=== PATIENT | male | born 1965 | race African-American/Black ===

== ENCOUNTER 2017-01-26 19:19 | Inpatient (IN) ==
[2017-01-26] MEDS ORDERED: methylPREDNISolone SOD SUC 125 MG/2 ML VIAL IV STA (20:09)
[2017-01-26] MEDS ORDERED: cefTRIAXone 1,000 MG in SODIUM CHLORIDE 0.9% 100 ML IV STA (20:09)
[2017-01-26] MEDS ORDERED: ONDANSETRON 4 MG/2 ML VIAL IV STA (20:09)
[2017-01-26] MEDS ORDERED: FUROSEMIDE 100 MG/10 ML VIAL IV STA (20:09)
[2017-01-26] MEDS ORDERED: NITROGLYCERIN 2% OINT 1 INCH/GM PACK TOP STA (20:09)
[2017-01-26] MEDS ORDERED: ASPIRIN 325 MG TABLET PO STA (20:09)
[2017-01-26] MEDS ORDERED: MORPHINE 2 MG/1 ML SYRINGE IV STA (20:09)
[2017-01-26] MEDS ORDERED: ONDANSETRON 4 MG/2 ML VIAL ONE (20:23)
[2017-01-26] MEDS ORDERED: cefTRIAXone 1,000 MG VIAL ONE (20:23)
[2017-01-26] MEDS ORDERED: MORPHINE 2 MG/1 ML SYRINGE ONE (20:23)
[2017-01-26] MEDS ORDERED: NITROGLYCERIN 2% OINT 1 INCH/GM PACK TOP ONE (20:23)
[2017-01-26] MEDS ORDERED: FUROSEMIDE 40 MG/4 ML VIAL ONE (20:23)
[2017-01-26] MEDS ORDERED: ASPIRIN 325 MG TABLET ONE (20:23)
[2017-01-26] MEDS ORDERED: FUROSEMIDE 20 MG/2 ML VIAL ONE (20:23)
[2017-01-26] MEDS ORDERED: SODIUM CHLORIDE 0.9% 100 ML IV ONE (20:23)
[2017-01-26 20:24] LABS: Eosinophils # 0.1 10*3/uL (0.0-0.87); Eosinophils % 1.6 % (0.00-10.9); Hematocrit 41.4 VOL% (42.0-52.0); Hemoglobin 15.1 GM/DL (14.0-18.0); Immature Granulocytes % 0.3 %; Immature Granulocytes Absolute 0.01 #; Lymphocytes # 0.8 10*3/uL (1.4-4.0); Mean Corpuscular HGB Conc 36.5 GM/DL (32-36); Mean Corpuscular Hemoglobin 32 PG (27-34); Mean Corpuscular Volume 87.7 FL (87-102); Mean Platelet Volume 11.1 FL (9.6-12.0); Monocytes # 0.4 10*3/uL (0.11-0.8); Monocytes % 12.3 % (1.7-12.7); Neutrophils # 1.8 10*3/uL (1.4-7.4); Neutrophils % 58.8 % (38.7-73.9); Platelet Count 142 T/CUMM (130-400); Red Blood Count 4.72 MC/CUMM (3.8-5.5); Red Cell Distribution Width 13.6 % (9.3-17.3); White Blood Count 3.1 T/CUMM (4-12)
[2017-01-26] MEDS ORDERED: methylPREDNISolone SOD SUC 125 MG/2 ML VIAL ONE (20:24)
[2017-01-26] MEDS ORDERED: ALBUTEROL 2.5 MG/3 ML NEB RESP TX SCH (20:30)
--- NOTE | 2017-01-26 20:31 | Emergency Department Note ---
Mira Jones Rolonda, am scribing for, and in the presence of, Bassem Carlin MD 20:14. Tesfaye Jones Charles R, MD, personally performed the services described in this documentation, ascribed by Alvarado Meyers in my presence, and it is both accurate and complete . Arrival - Arrival Chief Complaint: Shortness of Breath Stated Complaint: high BP, SOB ED Nursing Triage Note: Pt to triage with c/o SOB, htn. Pt states he does have a hx of CHF and has been compliant with Lasix. Pt also states his mother was hospitalized recently. Pt states he does have a hx of anxiety and thats what it feels like. Pt also c/o nausea. Mode of Arrival: Ambulatory Limitations: No Limitations Source: Patient, Old Records Reviewed, RN Notes Reviewed Time Seen by Provider: 01/26/17 20:05 - History of Present Illness HPI Narrative: Pt is a 51 y/o male who presents to the ED for further evaluation of SOB with an onset of earlier today. Pt has a PMHx of CHF and HTN. Pt states that he takes Lasix and baby ASA has been compliant with his medication. He states that he has also been smoking. He denies CP. No other complaint/pain in ED. Onset (ago): hour(s) Consistency: constant Severity: moderate Severity scale (1-10): 4 Allergies/Adverse Reactions: Allergies Allergy/AdvReac Type Severity Reaction Status Date / Time No Known Allergies Allergy Unverified 01/26/17 19:32 Home Medications: Home Medications Medication Instructions Recorded Confirmed Type Unable To Obtain [Unable to Obtain] 01/26/17 01/26/17 History Review of System - Review of System 12 point system: reviewed and no additional remarkable complaints except as stated - Review of System Constitutional: Absent: chills Eyes: Absent: discharge Head/Ears/Nose/Throat: Absent: earache Respiratory: Present: respiratory distress (SOB). Absent: cough Cardiovascular: Absent: chest pain Gastrointestinal: Absent: abdominal pain Genitourinary male: Absent: dysuria Musculoskeletal: Absent: arm pain Skin: Absent: rash Neurological: Absent: headache Psychiatric: Absent: anxiety Endocrine: Absent: cold intolerance Hematological/Lymphatic: Absent: easy bleeding Allergic/Immunologic: Absent: facial swelling Medical,Surgical,& Family Hx - Medical History Cardio: History of: CHF, Hypertension Psychological: History of: Anxiety Disorders, Depression - Social History Smoking Status: Current every day smoker Frequency of Alcohol Use: Occasionally Type of Drug Use: None Exam Vital Signs: Vital Signs Temperature 99 F 01/26/17 19:25 Pulse Rate 88 01/26/17 21:20 Respiratory Rate 18 01/26/17 21:20 Blood Pressure 121/93 01/26/17 19:25 O2 Sat by Pulse Oximetry 100 01/26/17 21:20 - General General appearance: alert, in no apparent distress - Head Head exam: Present: atraumatic, normocephalic - Eye Eye exam: Present: PERRL, EOMI - ENT ENT exam: Present: mucous membranes moist. Absent: mucous membranes dry - Neck Neck exam: Present: full ROM. Absent: tenderness - Chest Chest inspection: Present: symmetric chest wall rise. Absent: tenderness - Respiratory Respiratory exam: Present: rales (at base), wheezes (at the top). Absent: normal lung sounds bilaterally - Cardiovascular Cardiovascular exam: Present: regular rate, normal rhythm, normal heart sounds. Absent: bradycardia - Abdominal Exam Abdominal exam: Present: soft, normal bowel sounds. Absent: tenderness - Extremities Exam Extremities exam: Present: full ROM, pedal edema (+1). Absent: tenderness - Back Exam Back exam: Present: full ROM. Absent: tenderness - Neurological Exam Neurological exam: Present: alert, oriented X3, CN II-XII intact - Psychiatric Psychiatric exam: Present: normal affect, normal mood - Skin Skin exam: Present: warm, dry, intact, normal color. Absent: rash Course - Reevaluation(s) Reevaluation #1: Patient still wheezing still short of breath but him in the hospital for inhalation therapy Time: 22:46 - Consultations Consultation #1: Hospitalist will admit patient Time: 22:44 Results - Labs CBC & BMP: 01/26/17 20:12 01/26/17 20:12 Lab Results: I have reviewed the patients labs Labs: Laboratory Tests 01/26/17 20:12 WBC 3.1 L RBC 4.72 Hgb 15.1 Hct 41.4 L MCHC 36.5 H Baso % (Auto) 1.0 H Lymph # (Auto) 0.8 L Laboratory Tests 01/26/17 20:12 INR 0.9 PT Patient/Control Mix 9.9 D-Dimer, Quantitative 0.8 Laboratory Tests 01/26/17 20:12 Sodium 129 L Potassium 4.4 Chloride 96 L Carbon Dioxide 20 L Anion Gap 17.4 H BUN 10 GFR Calculation 116 Glucose 76 Calculated Osmolality 255.9 L AST 133 H ALT 70 H Globulin 3.9 H Albumin/Globulin Ratio 0.9 L Laboratory Tests 01/26/17 20:12 B-Natriuretic Peptide 18 Laboratory Tests 01/26/17 20:12 Urine pH 5.0 Ur Specific [place] 1.004 Urine Protein 100 Urine Glucose (UA) Negative Urine Ketones Negative Urine Blood Small Urine Nitrate Negative Urine Bilirubin Negative Urine Urobilinogen < 2.0 H Urine Leukocytes Negative Ur Squamous Epith Cells Occasional Ur Culture Indicated? Not indicated - Diagnostic Findings Procedure: Chest x-ray: report reviewed by me (No acute pathology seen. Confluent shadows overlying the right base.) Disposition Clinical Impression: Acute exacerbation of chronic obstructive airways disease, Tobacco abuse, Bronchitis Case discussed with: patient, patient's family Disposition: Still a Patient Condition: Stable Time of Disposition: 22:44
[2017-01-26 20:33] LABS: INR 0.9; PT Patient Result 9.9 SECS
[2017-01-26 20:44] LABS: Albumin 3.6 G/DL (3.4-5.0); Bilirubin,Total 0.6 MG/DL (0.2-1.0); Calcium 8.7 MG/DL (8.5-10.1); Magnesium 1.9 MG/DL (1.8-2.4); Osmolality,Calculated 255.9 MOS/KG (273-304); Potassium 4.4 MMOL/L (3.5-5.1); Total Protein 7.5 G/DL (6.4-8.3)
--- NOTE | 2017-01-26 20:45 | XRay Report ---
History short of breath The heart is normal in size No acute infiltrates seen. Confluent shadows overlying the right base Impression: No acute pathology seen PROCEDURE INTERPRETED AT [facility] DEPARTMENT OF RADIOLOGY Final Report Signed by: Dr. Shala Mendoza
[2017-01-26 22:03] LABS: Apearance,Urine CLEAR (Clear); Bilirubin,Urine Negative (Negative); Blood, Urine Small mg/dL (Negative); Glucose,Urine (UA) Negative (Negative); Ketones,Urine Negative (Negative); Nitrite,Urine Negative (Negative); Protein,Urine 100 MG/DL; Squamous Epithelial Cell,Urine Occasional /HPF (0-10); Urine Color Yellow (Yellow); Urine Specific Gravity 1.004 (1.001-1.035); Urine Urobilinogen < 2.0 EU/DL (0.2-1.0)
[2017-01-26] MEDS ORDERED: LORazepam 2 MG/1 ML VIAL ONE (22:48)
[2017-01-26 22:52] LABS: CKMB % 0.6 %; Troponin I Only 0.03 NG/ML (0.00-0.045)
[2017-01-26] MEDS ORDERED: LORazepam 2 MG/1 ML VIAL IV STA (23:13)
--- NOTE | 2017-01-27 00:08 | Hospitalist History & Physical ---
Assessment and Plan - Time spent with patient Time spent with patient: Greater than 30 minutes Time spent discussing smoking cessation with patient: 3 to 10 minutes (1) Shortness of breath Status: Acute Assessment and plan: Patient has never been diagnosed with lung pathology Has smoked 5 cigarettes a day for 21 years Wheezing on the right lung hsu DuoNeb breathing treatments every 6 and as needed Solu-Medrol 40 mg every 12 Singulair daily IV fluid hydration Current Visit: Yes (2) Hypertension Status: Chronic Assessment and plan: Noncompliance Unsure of medication or when the last time he took his BP medicine Blood pressure and I was 156/101 Has a history of CHF Lipid panel pending We will start Norvasc and HCTZ daily Current Visit: Yes (3) Anxiety Status: Acute Assessment and plan: This possibly could have Emma his shortness of breath on Has a history of anxiety and depression Has been out of Xanax for 4-5 months We will start patient on Celexa Current Visit: Yes (4) Hyponatremia Status: Acute Assessment and plan: Patient smells of EtOH tonight but admits to drinking only 1 beer EtOH level pending Hyponatremia noted on labs We will start a multivitamin, folic acid, and thiamine daily Current Visit: Yes (5) Alcoholism Status: Chronic Current Visit: Yes (6) Smoking hx Status: Chronic Assessment and plan: Smokes approximately 5 cigarettes a day for 21 years Smoking cessation given for 7 minutes Nicotine patch ordered Current Visit: Yes History of Present Illness Chief complaint: shortness of breath History of present illness: Called to the ER for Mr. Mckay who is a 51 year old male that presents to the ER tonight complaining of shortness of breath that started 3 weeks ago but got worse today. Patient states that his mother is in the hospital and he was upset and became short of breath shortly after that. Associated symptoms include chest tightness, dry cough, and hot and cold spells. Patient denies chest pain, palpitations, dizziness, fatigue, nausea, vomiting, diarrhea, melena , or hematemesis. In the ER he received Rocephin 1 g IV, nitroglycerin topically, aspirin 325, Ativan 1 mg IV, morphine 4 mg IV, Lasix 60 mg IV, Zofran 4 mg IV, and Solu-Medrol 125 mg. Lab work revealed white blood cell count of 3, sodium of 129, chloride of 96, AST 133, ALT 70, CK of 1425. BNP was 18, troponin 0 0.030, and chest x-ray was negative. EKG showed sinus rhythm. Additional history includes anxiety, CHF, depression, hypertension, CABG, and right hand surgery. Patient states the only medication he takes is Xanax and he has been out of it for 4-5 months. His senior research consultant is Dr. Maradiaga in [place] but is unsure the last time he saw him. He has no PCP. Patient states he smokes 5 cigarettes a day for 21 years and drinks socially. However he has a strong smell of alcohol tonight. He will be admitted to the hospital medicine service, with scheduled and as needed breathing treatments and IV steroids. He will need to follow-up with a slurry tank tender on the outpatient basis. Home medications were not entered. Patient is a full code. Home Medications Medication Instructions Recorded Confirmed Type Unable To Obtain [Unable to Obtain] 01/26/17 01/26/17 History Allergies Allergy/AdvReac Type Severity Reaction Status Date / Time No Known Allergies Allergy Unverified 01/26/17 19:32 Medical,Surgical,& Family Hx - Medical History Cardio: History of: CHF, Hypertension No history of: CAD, [place] Psychological: History of: Anxiety Disorders, Depression Neurology: No history of: Neurological Problems HEENT: No history of: HEENT Problems Endocrine: No history of: Endocrine Problems Rheumatology: No history of;: Rheumatological Problems Respiratory: No history of: Respiratory Problems Renal: No history of: Renal Problems Genitourinary: No history of: Problems Gastrointestinal: No history of: Liver Problems, GI Problems Musculoskeletal: No history of: Musculoskeletal Problems Hematology: No history of: Blood Disorders Reproductive: No histroy: Reproductive Problems - Surgical History Cardiac Surgeries: Sugical HX of: Cardiac Surgery (3 stents) Orthopedic Surgeries: Surgical HX of;: Orthopedic Surgery (Right hand surgery) - Family History Family History: Reports;: Family Cancer (Momlung cancer; aunt and uncle and maternal grandmother colon cancer), Family Heart Disease (Father, paternal and maternal grandfatherMI) - Social History Smoking Status: Current every day smoker Have you smoked in the last 12 months: Yes (5 cigarettes a day) Time spent discussing smoking cessation with patient: 3 to 10 minutes (Socially) Frequency of Alcohol Use: Occasionally Type of Drug Use: None Marital Status: Single Lives With:: Parent Functional capacity: independent ambulation - Constitutional Constitutional: Present: chills, fever(s). Absent: excessive sweating, headache (s), weakness - EENT Eyes: Absent: blurry vision Ears: Absent: tinnitus Nose, mouth and throat: Absent: headache(s), hoarseness, sore throat - Cardiovascular Cardiovascular: Present: dyspnea, other (Chest tightness). Absent: chest pain at rest, chest pain with activity, edema, orthopnea - Respiratory Respiratory: Present: cough, dyspnea. Absent: dyspnea on exertion - Gastrointestinal Gastrointestinal: Absent: abdominal pain, change in bowel habits, diarrhea, nausea, vomiting - Genitourinary Genitourinary: Absent: difficulty urinating, dysuria - Musculoskeletal Musculoskeletal: Absent: back pain - Neurological Neurological: Absent: confusion, convulsions, dizziness - Psychiatric Psychiatric: Present: anxiety, depression, panic attacks. Absent: auditory hallucinations, confusion, homicidal ideation, suicidal ideation, visual hallucinations - Endocrine Endocrine: Absent: cold intolerance, heat intolerance - Hematologic/Lymphatic Hematologic/Lymphatic: Absent: easy bleeding, easy bruising Exam - Constitutional Vitals: Period Temp Pulse Resp BP Sys/Sousa Pulse Ox Last 24 Hr 99 F-99 F 86-103 18-21 121-121/93-93 98-100 General appearance: no acute distress, over weight - Head Head exam: Present: normal inspection, normocephalic - Eye Eye exam: Present: EOMI Pupils: Present: HERIBERTO, normal accommodation - ENT ENT exam: Present: normal exam - Neck Neck exam: Present: normal inspection - Respiratory Respiratory exam: Present: wheezes (Right lobes). Absent: accessory muscle use (Respirations even and unlabored. Symmetrical rise and fall of chest noted.) - Cardiovascular Cardiovascular exam: Present: regular rate and rhythm. Absent: diastolic murmur , systolic murmur - GI/Abdominal GI/Abdominal exam: Present: normal bowel sounds, soft. Absent: distended, firm , tenderness - Extremities Exam Extremities exam: Present: normal inspection, normal capillary refill, full ROM. Absent: edema - Back Exam Back exam: Present: normal inspection - Neurological Exam Neurological exam: Present: alert, oriented X3 (Answers questions appropriately. Makes good eye contact.) - Psychiatric Psychiatric exam: Present: normal affect, normal mood - Skin Skin exam: Present: normal color, warm, dry, intact Results - Labs CBC & BMP: 01/26/17 20:12 01/26/17 20:12 Lab Results: I have reviewed the past 24 hour labs - EKG EKG results: interpreted by MARYJANE - Diagnostic Findings Procedure: Chest x-ray: report reviewed by me (No acute pathology seen)
[2017-01-27] MEDS ORDERED: NICOTINE 21 MG/24 HR PATCH TRANSDERM PRN (00:36)
[2017-01-27] MEDS ORDERED: ACETAMINOPHEN 325 MG TABLET PO PRN (00:36)
[2017-01-27] MEDS ORDERED: SODIUM CHLORIDE 0.9% 1,000 ML IV SCH (00:36)
[2017-01-27] MEDS ORDERED: ALBUTEROL/IPRATROPIUM 3 ML NEB RESP TX PRN (00:36)
[2017-01-27] MEDS ORDERED: ONDANSETRON 4 MG/2 ML VIAL IV PRN (00:36)
[2017-01-27] MEDS: ALBUTEROL/IPRATROPIUM 3 ML NEB RESP TX SCH ×4 (01:12→20:14)
[2017-01-27] MEDS: MONTELUKAST 10 MG TABLET PO SCH ×2 (01:59→20:35)
[2017-01-27] MEDS: methylPREDNISolone SOD SUC 40 MG/1 ML VIAL IV SCH ×2 (01:59→13:42)
[2017-01-27 03:16] LABS: Risk Ratio 1.61
[2017-01-27 08:06] LABS: Hematocrit 40.4 VOL% (42.0-52.0); Hemoglobin 14.6 GM/DL (14.0-18.0); Lymphocytes # 0.2 10*3/uL (1.4-4.0); Lymphocytes % 8.1 % (21.2-54.2); Mean Corpuscular HGB Conc 36.1 GM/DL (32-36); Mean Corpuscular Hemoglobin 32 PG (27-34); Mean Corpuscular Volume 88.8 FL (87-102); Mean Platelet Volume 11.5 FL (9.6-12.0); Monocytes % 1.3 % (1.7-12.7); Neutrophils # 2.1 10*3/uL (1.4-7.4); Neutrophils % 90.6 % (38.7-73.9); Platelet Count 125 T/CUMM (130-400); Red Blood Count 4.55 MC/CUMM (3.8-5.5); White Blood Count 2.4 T/CUMM (4-12)
[2017-01-27 08:34] LABS: Albumin 3.2 G/DL (3.4-5.0); Bilirubin,Total 0.4 MG/DL (0.2-1.0); Calcium 8.4 MG/DL (8.5-10.1); Magnesium 1.6 MG/DL (1.8-2.4); Osmolality,Calculated 261.7 MOS/KG (273-304); Potassium 4.7 MMOL/L (3.5-5.1); Total Protein 7.2 G/DL (6.4-8.3)
[2017-01-27 08:41] LABS: Band Neutrophils 4 % (0-10); Lymphocytes 5 % (20-55); Segmented Neutrophils 91 % (50-85); Total Cells Counted 100
[2017-01-27 08:46] LABS: CKMB % 0.6 %
[2017-01-27] MEDS: PANTOPRAZOLE 40 MG TABLET PO SCH (08:58)
[2017-01-27] MEDS: hydroCHLOROthiazide 12.5 MG CAPSULE PO SCH (08:58)
[2017-01-27] MEDS: amLODIPine 10 MG TABLET PO SCH (08:58)
[2017-01-27] MEDS: DOCUSATE SODIUM 100 MG CAPSULE PO SCH ×2 (08:58→20:35)
[2017-01-27] MEDS: ENOXAPARIN 40 MG/0.4 ML SYRINGE SUBCUT SCH (08:59)
[2017-01-27] MEDS ORDERED: THIAMINE INJ 100 MG, FOLIC ACID INJ 1 MG, MULTIVITAMIN INJ 10 ML in SODIUM CHLORIDE 0.9... IV SCH (09:00)
[2017-01-27] MEDS ORDERED: THIAMINE 100 MG TABLET PO SCH (09:00)
[2017-01-27] MEDS ORDERED: MULTIVITAMIN (CENTRUM) TABLET PO SCH (09:00)
[2017-01-27] MEDS ORDERED: FOLIC ACID 1 MG TABLET PO SCH (09:00)
[2017-01-27] MEDS: LORazepam 2 MG/1 ML VIAL IV PRN ×3 (10:35→20:37)
--- NOTE | 2017-01-27 13:15 | Hospitalist Progress Note ---
Assessment and Plan (1) Shortness of breath Status: Acute Assessment and plan: patient looked anxious, mild hypoxic with elevated D-dimer Plan CT with PTE protocol Continue with nebs treatment, steroids, oxygen Complete cardiac enzymes Current Visit: Yes (2) Hypertension Status: Chronic Assessment and plan: stable Current Visit: Yes (3) Alcoholism Status: Chronic Assessment and plan: with Impending DTs Plan IVF, banana bag, Ativan prn add Librium Current Visit: Yes (4) Hyponatremia Status: Acute Assessment and plan: mild-most likely due Alcoholism. Improving Plan continue current care Current Visit: Yes (5) Acute exacerbation of chronic obstructive airways disease Status: Acute Assessment and plan: continue with Steroids, nebs treatment and oxygen. CXR-no acute changes Current Visit: Yes (6) Tobacco abuse Status: Acute Assessment and plan: Counseled to quit, continue on Nicotine patch Current Visit: Yes (7) Elevated liver enzymes Status: Acute Assessment and plan: will get hepatitis panel, Liver uss, ammonia level Current Visit: Yes (8) Anxiety Status: Acute Assessment and plan: continue celexa and ativan prn Current Visit: Yes Hospitalist: Subjective Interval history: Patient was anxious and shaky. Exam - Constitutional Vitals: Period Temp Pulse Resp BP Sys/Sousa Pulse Ox Last 24 Hr 98.3 F-99 F 86-112 16-21 121-151/92-96 95-700 General appearance: no acute distress - Head Head exam: Present: normal inspection - Respiratory Respiratory exam: Present: clear to auscultation bilaterally - Cardiovascular Cardiovascular exam: Present: regular rate and rhythm - GI/Abdominal GI/Abdominal exam: Present: normal bowel sounds - Extremities Exam Extremities exam: Present: normal inspection Results - Labs CBC & BMP: 01/27/17 07:33 01/27/17 07:33 Lab Results: I have reviewed the past 24 hour labs Specialty Discharge - Follow Up or Referrals Follow up with: Graeme Anne MD [Physician] -
[2017-01-27] MEDS ORDERED: MAGNESIUM SULF RIDER 2 GM in PREMIX 1 EACH IV ONE (13:17)
[2017-01-27] MEDS: chlordiazePOXIDE 10 MG CAPSULE PO PRN ×2 (13:41→20:35)
[2017-01-27 13:56] LABS: PT Patient Result 10.3 SECS
[2017-01-27 14:15] LABS: CKMB % 0.6 %; Troponin I Only 0.037 NG/ML (0.00-0.045)
--- NOTE | 2017-01-27 14:33 | CT Report ---
Exam: CT chest with contrast, PE study Date: 01/27/2017 Comparison: Chest x-ray 01/26/2017 Reason: Shortness of breath, elevated d-dimer Technique: Axial images of the chest were obtained after administration of 160 cc of IV Omnipaque 350 intravenous contrast. Initial scans were limited and additional scans were obtained following the injection of additional contrast. Coronal reformatted images were also acquired. The study was performed per pulmonary embolism protocol. Total DLP: 1407.90 Findings: The heart is normal in size with cardiac fat pads and coronary artery calcifications. No evidence of aortic dissection or pulmonary emboli. Calcified granulomata/nodes. Minimal atelectasis. 39 mm hiatal hernia with air-fluid level in the esophagus. Prominent fatty infiltration of the liver which has a somewhat lobulated contour. Calcified granuloma in the nonenlarged spleen. Degenerative changes are noted. Impression: No evidence of pulmonary embolism. Coronary artery calcifications are noted with cardiac fat pads. Fatty infiltration of the liver. 39 mm hiatal hernia with nonspecific air-fluid level in the esophagus. Evidence of old healed granulomatous disease with minimal atelectasis. This CT exam was performed using one or more the following dose reduction techniques: Automated exposure control, adjustment of the MA and/or KV according to patient size, or use of iterative reconstruction technique. PROCEDURE INTERPRETED AT [facility] DEPARTMENT OF RADIOLOGY Final Report Signed by: Dr. Iris Carter
--- NOTE | 2017-01-27 15:10 | Ultrasound Report ---
Liver ultrasound. Indication: Abnormal liver enzymes. History of alcohol abuse. The length of the liver is normal. It measures 18.2 cm in length. There is severe fatty infiltration of the liver. No focal liver masses are identified. There is no intrahepatic biliary ductal dilatation. No nodularity of the contour is seen. There are multiple gallstones present. There is no gallbladder wall thickening or fluid around the gallbladder. The common duct measures 4 mm. The tail of the pancreas is obscured by bowel gas. Visualized portions of the pancreas appear normal. The right kidney presents a normal appearance. There is no ascites noted. Impression: Severe fatty liver. Cholelithiasis. The Ultrasound images were captured and stored. PROCEDURE INTERPRETED AT [facility] DEPARTMENT OF RADIOLOGY Final Report Signed by: Dr. Emperatriz Mendoza
--- NOTE | 2017-01-27 15:44 | Order Completion Report ---
See report scanned to EMR
[2017-01-27] MEDS: CITALOPRAM 20 MG TABLET PO SCH (20:35)
[2017-01-28] MEDS: methylPREDNISolone SOD SUC 40 MG/1 ML VIAL IV SCH ×2 (01:00→13:00)
[2017-01-28] MEDS: ALBUTEROL/IPRATROPIUM 3 ML NEB RESP TX SCH ×4 (01:16→19:44)
[2017-01-28 05:31] LABS: Hematocrit 37.8 VOL% (42.0-52.0); Hemoglobin 13.5 GM/DL (14.0-18.0); Immature Granulocytes % 0.3 %; Immature Granulocytes Absolute 0.01 #; Lymphocytes # 0.2 10*3/uL (1.4-4.0); Lymphocytes % 4.8 % (21.2-54.2); Mean Corpuscular HGB Conc 35.7 GM/DL (32-36); Mean Corpuscular Hemoglobin 32 PG (27-34); Mean Platelet Volume 11.7 FL (9.6-12.0); Monocytes # 0.4 10*3/uL (0.11-0.8); Monocytes % 9.9 % (1.7-12.7); Neutrophils # 3.3 10*3/uL (1.4-7.4); Platelet Count 137 T/CUMM (130-400); Red Cell Distribution Width 14.2 % (9.3-17.3); White Blood Count 3.9 T/CUMM (4-12)
[2017-01-28 05:53] LABS: Hepatitis B Core IgM Quant 0.26 Index; Hepatitis B Core IgM Result Negative (Negative)
[2017-01-28 05:56] LABS: Hepatitis C Virus Ab Quant 0.14 Index; Hepatitis C Virus Ab Result Negative (Negative)
[2017-01-28 06:00] LABS: Troponin I Only 0.032 NG/ML (0.00-0.045)
[2017-01-28 06:13] LABS: Hepatitis A Ab IgM Quant 3.75 Index; Hepatitis A Ab IgM Result Positive (Negative)
[2017-01-28 06:17] LABS: Hepatitis B Surface Ag Quant 0.22 Index; Hepatitis B Surface Ag Result Negative (Negative)
[2017-01-28] MEDS: LORazepam 2 MG/1 ML VIAL IV PRN ×3 (06:29→18:25)
[2017-01-28 06:44] LABS: Band Neutrophils 2 % (0-10); Lymphocytes 7 % (20-55); Nucleated Red Blood Cells 1 (0-5); Platelet Estimate Normal; Segmented Neutrophils 88 % (50-85); Total Cells Counted 100
[2017-01-28 06:56] LABS: Calcium 8.6 MG/DL (8.5-10.1); Magnesium 2.3 MG/DL (1.8-2.4); Osmolality,Calculated 269.2 MOS/KG (273-304); Potassium 4.5 MMOL/L (3.5-5.1)
[2017-01-28] MEDS: ENOXAPARIN 40 MG/0.4 ML SYRINGE SUBCUT SCH (09:00)
[2017-01-28] MEDS: hydroCHLOROthiazide 12.5 MG CAPSULE PO SCH (09:01)
[2017-01-28] MEDS: amLODIPine 10 MG TABLET PO SCH (09:01)
[2017-01-28] MEDS: PANTOPRAZOLE 40 MG TABLET PO SCH (09:01)
[2017-01-28] MEDS: DOCUSATE SODIUM 100 MG CAPSULE PO SCH ×2 (09:01→21:24)
[2017-01-28] MEDS: chlordiazePOXIDE 10 MG CAPSULE PO PRN ×2 (09:01→21:23)
[2017-01-28] MEDS: ISOSORBIDE MONONITRATE 60 MG TABLET PO SCH ×2 (13:58→21:23)
[2017-01-28] MEDS: LABETALOL 200 MG TABLET PO SCH ×2 (13:59→21:22)
--- NOTE | 2017-01-28 17:36 | Hospitalist Progress Note ---
Assessment and Plan (1) Shortness of breath Status: Acute Assessment and plan: CT showed no evidence of PE. Troponin was okay. He breathes better. Plan Continue with nebs treatment, steroids, oxygen Current Visit: Yes (2) Hypertension Status: Chronic Assessment and plan: We have resumed some of the home blood pressure meds, follow response. Current Visit: Yes (3) Alcoholism Status: Chronic Assessment and plan: with Impending DTs. Patient appears to look better today Plan Continue IVF, banana bag, Ativan prn, Librium Current Visit: Yes (4) Hyponatremia Status: Acute Assessment and plan: mild-most likely due Alcoholism. Improving Plan continue current care Current Visit: Yes (5) Acute exacerbation of chronic obstructive airways disease Status: Acute Assessment and plan: continue with Steroids, nebs treatment and oxygen. CXR-no acute changes Current Visit: Yes (6) Tobacco abuse Status: Acute Assessment and plan: Counseled to quit, continue on Nicotine patch Current Visit: Yes (7) Elevated liver enzymes Status: Acute Assessment and plan: Liver US- Severe fatty liver. Cholelithiasis. Hepatitis panel- Hepatitis A positive ammonia level- normal Plan Continue to monitor Current Visit: Yes (8) Anxiety Status: Acute Assessment and plan: continue celexa and ativan prn Current Visit: Yes Hospitalist: Subjective Interval history: Patient's blood pressure was high so we resumed some of his home blood pressure meds.He looks better today Exam - Constitutional Vitals: Period Temp Pulse Resp BP Sys/Sousa Pulse Ox Last 24 Hr 97.9 F-98.7 F 90-122 17-20 129-152/85-109 95-100 General appearance: no acute distress - Head Head exam: Present: normal inspection - Respiratory Respiratory exam: Present: clear to auscultation bilaterally - Cardiovascular Cardiovascular exam: Present: regular rate and rhythm - GI/Abdominal GI/Abdominal exam: Present: normal bowel sounds - Extremities Exam Extremities exam: Present: normal inspection - Neurological Exam Neurological exam: Present: alert, oriented X3 Results - Labs CBC & BMP: 01/28/17 04:44 01/28/17 04:44 Lab Results: I have reviewed the past 24 hour labs Specialty Discharge - Follow Up or Referrals Follow up with: Graeme Anne MD [Physician] -
[2017-01-28] MEDS: CITALOPRAM 20 MG TABLET PO SCH (21:22)
[2017-01-28] MEDS: MONTELUKAST 10 MG TABLET PO SCH (21:23)
[2017-01-29] MEDS: ALBUTEROL/IPRATROPIUM 3 ML NEB RESP TX SCH ×4 (00:08→19:29)
[2017-01-29] MEDS: methylPREDNISolone SOD SUC 40 MG/1 ML VIAL IV SCH ×2 (00:24→13:56)
[2017-01-29 06:15] LABS: Hematocrit 36.7 VOL% (42.0-52.0); Immature Granulocytes % 0.3 %; Immature Granulocytes Absolute 0.01 #; Lymphocytes # 0.2 10*3/uL (1.4-4.0); Lymphocytes % 5.6 % (21.2-54.2); Mean Corpuscular HGB Conc 35.4 GM/DL (32-36); Mean Corpuscular Hemoglobin 32 PG (27-34); Mean Corpuscular Volume 90.8 FL (87-102); Mean Platelet Volume 11.6 FL (9.6-12.0); Monocytes # 0.3 10*3/uL (0.11-0.8); Monocytes % 8.4 % (1.7-12.7); Neutrophils # 3.4 10*3/uL (1.4-7.4); Neutrophils % 85.7 % (38.7-73.9); Platelet Count 111 T/CUMM (130-400); Red Blood Count 4.04 MC/CUMM (3.8-5.5); Red Cell Distribution Width 14.2 % (9.3-17.3); White Blood Count 3.9 T/CUMM (4-12)
[2017-01-29 06:48] LABS: Bilirubin,Total 1.1 MG/DL (0.2-1.0); Osmolality,Calculated 277.1 MOS/KG (273-304); Potassium 4.5 MMOL/L (3.5-5.1); Total Protein 6.3 G/DL (6.4-8.3)
[2017-01-29] MEDS: hydroCHLOROthiazide 12.5 MG CAPSULE PO SCH (09:09)
[2017-01-29] MEDS: DOCUSATE SODIUM 100 MG CAPSULE PO SCH ×2 (09:09→21:27)
[2017-01-29] MEDS: LOSARTAN 50 MG TABLET PO SCH (09:09)
[2017-01-29] MEDS: chlordiazePOXIDE 10 MG CAPSULE PO PRN ×3 (09:09→21:31)
[2017-01-29] MEDS: ISOSORBIDE MONONITRATE 60 MG TABLET PO SCH ×2 (09:09→21:26)
[2017-01-29] MEDS: LABETALOL 200 MG TABLET PO SCH ×2 (09:09→21:27)
[2017-01-29] MEDS: amLODIPine 10 MG TABLET PO SCH (09:09)
[2017-01-29] MEDS: ASPIRIN 325 MG TABLET PO SCH (09:09)
[2017-01-29] MEDS: PANTOPRAZOLE 40 MG TABLET PO SCH (09:09)
[2017-01-29] MEDS: ENOXAPARIN 40 MG/0.4 ML SYRINGE SUBCUT SCH (09:10)
[2017-01-29] MEDS: LORazepam 2 MG/1 ML VIAL IV PRN ×2 (11:12→21:31)
--- NOTE | 2017-01-29 13:51 | Hospitalist Progress Note ---
Assessment and Plan (1) Shortness of breath Status: Acute Assessment and plan: CT showed no evidence of PE. Troponin was okay. He breathes better. Plan Continue with nebs treatment, decrease steroids, oxygen Current Visit: Yes (2) Hypertension Status: Chronic Assessment and plan: stable on his home meds. Current Visit: Yes (3) Alcoholism Status: Chronic Assessment and plan: with Impending DTs. Patient appears to be improving although with ocassional anxiety attacks which may be related to sick mom. Plan Continue IVF, banana bag, Ativan prn, Librium Current Visit: Yes (4) Hyponatremia Status: Acute Assessment and plan: mild-most likely due Alcoholism. Improving Plan continue current care Current Visit: Yes (5) Acute exacerbation of chronic obstructive airways disease Status: Acute Assessment and plan: continue with Steroids, nebs treatment and oxygen. CXR-no acute changes Current Visit: Yes (6) Tobacco abuse Status: Acute Assessment and plan: Counseled to quit, continue on Nicotine patch Current Visit: Yes (7) Elevated liver enzymes Status: Acute Assessment and plan: Liver US- Severe fatty liver. Cholelithiasis.Improving Hepatitis panel- Hepatitis A positive ammonia level- normal Plan Continue to monitor Current Visit: Yes (8) Anxiety Status: Acute Assessment and plan: continue celexa and ativan prn Current Visit: Yes (9) Dyslipidemia Status: Acute Assessment and plan: start statins, monitor LFTs Current Visit: Yes Hospitalist: Subjective Interval history: Patient seen. his mom is on admission on the 4th floor and she is not doing well. He states he has been having his anxiety attacks. Exam - Constitutional Vitals: Period Temp Pulse Resp BP Sys/Sousa Pulse Ox Last 24 Hr 97.9 F-99.7 F 62-122 16-19 115-156/71-97 95-100 General appearance: no acute distress - Head Head exam: Present: normal inspection - Respiratory Respiratory exam: Present: clear to auscultation bilaterally - Cardiovascular Cardiovascular exam: Present: regular rate and rhythm - GI/Abdominal GI/Abdominal exam: Present: normal bowel sounds - Extremities Exam Extremities exam: Present: normal inspection - Neurological Exam Neurological exam: Present: alert Results - Labs CBC & BMP: 01/29/17 05:39 01/29/17 05:39 Lab Results: I have reviewed the past 24 hour labs Specialty Discharge - Follow Up or Referrals Follow up with: Graeme Anne MD [Physician] -
[2017-01-29] MEDS: SPIRONOLACTONE 25 MG TABLET PO SCH (15:14)
[2017-01-29] MEDS ORDERED: LOVASTATIN 20 MG TABLET PO SCH (17:00)
[2017-01-29] MEDS ORDERED: SIMVASTATIN 20 MG TABLET PO SCH (21:00)
[2017-01-29] MEDS: CITALOPRAM 20 MG TABLET PO SCH (21:26)
[2017-01-29] MEDS: MONTELUKAST 10 MG TABLET PO SCH (21:26)
[2017-01-30] MEDS: ALBUTEROL/IPRATROPIUM 3 ML NEB RESP TX SCH ×2 (00:13→07:50)
[2017-01-30 04:26] VITALS: BP 127/93
[2017-01-30 07:08] LABS: Hemoglobin 12.7 GM/DL (14.0-18.0); Immature Granulocytes % 0.5 %; Immature Granulocytes Absolute 0.02 #; Lymphocytes # 0.8 10*3/uL (1.4-4.0); Lymphocytes % 18.1 % (21.2-54.2); Mean Corpuscular HGB Conc 35.3 GM/DL (32-36); Mean Corpuscular Hemoglobin 32 PG (27-34); Mean Corpuscular Volume 91.8 FL (87-102); Mean Platelet Volume 12.5 FL (9.6-12.0); Monocytes # 0.6 10*3/uL (0.11-0.8); Monocytes % 12.9 % (1.7-12.7); Neutrophils % 68.5 % (38.7-73.9); Platelet Count 112 T/CUMM (130-400); Red Blood Count 3.92 MC/CUMM (3.8-5.5); Red Cell Distribution Width 14.1 % (9.3-17.3); White Blood Count 4.4 T/CUMM (4-12)
[2017-01-30 07:41] LABS: Albumin 3.2 G/DL (3.4-5.0); Bilirubin,Total 0.9 MG/DL (0.2-1.0); Potassium 4.3 MMOL/L (3.5-5.1); Total Protein 6.4 G/DL (6.4-8.3)
[2017-01-30] MEDS: ISOSORBIDE MONONITRATE 60 MG TABLET PO SCH (08:39)
[2017-01-30] MEDS: SPIRONOLACTONE 25 MG TABLET PO SCH (08:39)
[2017-01-30] MEDS: LABETALOL 200 MG TABLET PO SCH (08:39)
[2017-01-30] MEDS: amLODIPine 10 MG TABLET PO SCH (08:39)
[2017-01-30] MEDS: PANTOPRAZOLE 40 MG TABLET PO SCH (08:40)
[2017-01-30] MEDS: hydroCHLOROthiazide 12.5 MG CAPSULE PO SCH (08:40)
[2017-01-30] MEDS: ENOXAPARIN 40 MG/0.4 ML SYRINGE SUBCUT SCH (08:40)
[2017-01-30] MEDS: DOCUSATE SODIUM 100 MG CAPSULE PO SCH (08:40)
[2017-01-30] MEDS: ASPIRIN 325 MG TABLET PO SCH (08:40)
[2017-01-30] MEDS: LOSARTAN 50 MG TABLET PO SCH (08:40)
--- NOTE | 2017-01-30 08:44 | Discharge Summary ---
<Jules Perales - Last Filed: 01/30/17 08:47> Hospital Course - Hospital Course Hospital Course: Mr. Mckay is a 51 year of male who presented to the [facility] ED on 01/26/17 with complaints of progressively worsening shortness of breath. On admission, it was found that the patient's mother was also admitted to the hospital. He was admitted to the hospital medicine service with acute exacerbation of COPD, SOB, HTN, hyponatremia, alcoholism, anxiety and elevated liver enzymes. He was treated with duonebs, O2 and steroids. CXR showed no acute changes. His hyponatremia was likely due to excessive alcohol intake. This improved with IV fluids and ETOH abstinence. Impending DTs became evident, and the patient was continued on IV fluids with a banana bag, Librium and Ativan PRN. A hepatitis panel revealed a positive Hep A IgM Ab. Liver US revealed a severe fatty liver and cholelithiasis. Chest CT showed no evidence of PE. Celexa and Ativan PRN were continued for the patient's anxienty. At this time, the patient has reached maximum benefit from hospitalization and is stable for discharge home. Unfortunately, he lost his mom last night but he is stable enough to go home.We will send him home on Zetia for his dyslipidemia instead of the statins, his PCP will need to follow up with him. He should follow up with his PCP in 1-2 weeks and later with a GI specialist. - Time spent with patient Time with patient DS: Greater than 30 minutes Time spent discussing smoking cessation with patient: more than 10 minutes Specialty Discharge - Follow Up or Referrals Follow up with: Graeme Anne MD [Physician] - Discharge Plan - Discharge Data Disposition: Disch To Home/Self Care - Discharge Medications New chlordiazePOXIDE [Librium] 10 mg PO TID PRN #20 capsule PRN Reason: Agitation Citalopram [CeleXA] 10 mg PO BEDTIME #20 tablet Ezetimibe [Zetia] 10 mg PO BEDTIME #30 tablet Ipratropium/Albuterol Inhaler [Combivent Respimat Inhaler] 1 puff INH QID #1 inhaler Montelukast Tab [Singulair Tab] 10 mg PO BEDTIME #30 tablet Nicotine 21 mg/24 Hr Patch [Nicoderm CQ 21 mg/24 hr Patch] 1 patch TRANSDERM DAILY PRN #7 patch PRN Reason: Nicotine Cravings Pantoprazole Tab [Protonix Tab] 40 mg PO DAILY #30 tablet HYDROcodone/ACETAMIN 5-325 [Ramey 5-325] 1 tablet PO Q4H PRN #20 tablet PRN Reason: Pain Mild (1-3) predniSONE TAB [PredniSONE] See Taper PO DAILY #30 tablet Continue NIFEdipine [Nifedipine ER] 90 mg PO DAILY Labetalol HCl 200 mg PO BID Isosorbide Mononitrate [Isosorbide Mononitrate ER] 60 mg PO BID Hydralazine HCl 100 mg PO TID Spironolactone 25 mg PO DAILY Losartan Potassium 100 mg PO DAILY Aspirin 325 mg PO DAILY - Follow Up or Referral Follow Up: Graeme Anne MD [Physician] - - Forms/Instructions Exam - Constitutional Vitals: Period Temp Pulse Resp BP Sys/Sousa Pulse Ox Last 24 Hr 97.7 F-98.5 F 68-103 16-20 101-141/71-93 92-100 Discharge Results Procedures and tests throughout hospitalization: Pending Orders 01/26/17 20:12 Blood Culture Stat Labs on day of discharge: Labs from last 24 hours 01/30/17 01/30/17 05:39 05:39 WBC 4.4 RBC 3.92 Hgb 12.7 L Hct 36.0 L MCV 91.8 MCH 32 MCHC 35.3 RDW 14.1 Plt Count 112 L MPV 12.5 H Neut % (Auto) 68.5 Lymph % (Auto) 18.1 L Wagoner % (Auto) 12.9 H Eos % (Auto) 0.0 Baso % (Auto) 0.0 Neut # (Auto) 3.0 Lymph # (Auto) 0.8 L Wagoner # (Auto) 0.6 Eos # (Auto) 0.0 Baso # (Auto) 0.0 Immature Gran % 0.5 Nucleated RBC % 0.0 Immature Gran # 0.02 Nucleated RBCs # 0.00 Immature Plt Fraction 0.0 Sodium 136 Potassium 4.3 Chloride 100 Carbon Dioxide 25 Anion Gap 15.3 H BUN 42 H Creatinine 1.40 H GFR Calculation 87 BUN/Creatinine Ratio 30.00 H Glucose 77 Calculated Osmolality 281.0 Calcium 9.0 Total Bilirubin 0.90 AST 54 H ALT 51 Alkaline Phosphatase 49 Total Protein 6.4 Albumin 3.2 L Globulin 3.2 Albumin/Globulin Ratio 1.0 L Preliminary micro results at discharge 01/26/17 20:12 Blood Culture - Preliminary Blood No growth at 3 days 01/26/17 20:12 Blood Culture - Preliminary Blood No growth at 3 days DS: Provider Date of admission: 01/26/17 23:44 Primary care physician: . No PCP Attending physician on admission: Cris Samaniego MD Consults: 01/27/17 00:36 Consult to Case Mgmt/Social Srvs [CONS] Routine Reason for Case Mgmt/Social Srvs: Discharge Planning Consult Comment: will need appointment for follow up with PCP/Pulmonology Discharging clinician: Jules STERN Expected date of discharge: 01/30/17 <Cris Samaniego - Last Filed: 01/30/17 09:25> Hospital Course - Time spent with patient Time with patient DS: Greater than 30 minutes (Time spent greater than 35mins) Diagnosis - Discharge Diagnosis (1) Shortness of breath Status: Acute (2) Hypertension Status: Chronic (3) Alcoholism Status: Chronic (4) Hyponatremia Status: Acute (5) Acute exacerbation of chronic obstructive airways disease Status: Acute (6) Tobacco abuse Status: Acute (7) Elevated liver enzymes Status: Acute (8) Anxiety Status: Acute (9) Dyslipidemia Status: Acute Discharge Plan - Discharge Data Condition at Discharge: Stable Discharge Diet: advance to your usual diet, low fat, low cholesterol Activity: resume usual activities as tolerated - Forms/Instructions Additional Discharge Instructions: Follow with PCP in 1week Exam - Constitutional General appearance: no acute distress - Head Head exam: Present: normal inspection - Respiratory Respiratory exam: Present: clear to auscultation bilaterally - Cardiovascular Cardiovascular exam: Present: regular rate and rhythm - GI/Abdominal GI/Abdominal exam: Present: normal bowel sounds - Extremities Exam Extremities exam: Present: normal inspection
[2017-01-30] MEDS ORDERED: predniSONE 20 MG TABLET PO SCH (09:00)
== END 2017-01-30 10:50 | disposition home or self-care (01) | DRG 191 ==
LOC: N.ED 19:19 → N.EDINP 23:44 → N.5E 01-27 00:04
PROVIDERS: ADMIT Internal Medicine; ATTEND Internal Medicine

== ENCOUNTER 2017-04-10 16:37 | Observation (INO) ==
[2017-04-10] MEDS ORDERED: ONDANSETRON 4 MG/2 ML VIAL IV STA (16:51)
[2017-04-10] MEDS ORDERED: SODIUM CHLORIDE 0.9% 500 ML IV STA (16:51)
[2017-04-10] MEDS ORDERED: NITROGLYCERIN 2% OINT 1 INCH/GM PACK TOP STA (16:51)
[2017-04-10] MEDS ORDERED: MORPHINE 2 MG/1 ML SYRINGE IV STA (16:51)
[2017-04-10] MEDS ORDERED: ENOXAPARIN 100 MG/ML SYRINGE SUBCUT STA (16:51)
[2017-04-10] MEDS ORDERED: ASPIRIN 325 MG TABLET PO STA (16:51)
[2017-04-10 17:05] LABS: Basophils # 0.1 10*3/uL (0.0-0.2); Basophils % 1.2 % (0.0-0.8); Hematocrit 42.3 VOL% (42.0-52.0); Hemoglobin 14.7 GM/DL (14.0-18.0); Immature Granulocytes % 0.2 %; Immature Granulocytes Absolute 0.01 #; Lymphocytes # 0.5 10*3/uL (1.4-4.0); Lymphocytes % 11.7 % (21.2-54.2); Mean Corpuscular HGB Conc 34.8 GM/DL (32-36); Mean Corpuscular Hemoglobin 32 PG (27-34); Mean Corpuscular Volume 93.2 FL (87-102); Mean Platelet Volume 10.8 FL (9.6-12.0); Monocytes # 0.5 10*3/uL (0.11-0.8); Monocytes % 11.2 % (1.7-12.7); Neutrophils % 75.7 % (38.7-73.9); Platelet Count 90 T/CUMM (130-400); Red Blood Count 4.54 MC/CUMM (3.8-5.5)
[2017-04-10 17:12] LABS: INR 0.9
[2017-04-10] MEDS ORDERED: ENOXAPARIN 100 MG/ML SYRINGE SUBCUT ONE (17:15)
[2017-04-10] MEDS ORDERED: NITROGLYCERIN 2% OINT 1 INCH/GM PACK TOP ONE (17:15)
[2017-04-10] MEDS ORDERED: ONDANSETRON 4 MG/2 ML VIAL ONE (17:15)
[2017-04-10] MEDS ORDERED: MORPHINE 2 MG/1 ML SYRINGE ONE (17:16)
[2017-04-10 17:38] LABS: Albumin 2.8 G/DL (3.4-5.0); Bilirubin,Total 0.4 MG/DL (0.2-1.0); CKMB % 0.6 %; Calcium 7.9 MG/DL (8.5-10.1); Magnesium 1.2 MG/DL (1.8-2.4); Potassium 4.1 MMOL/L (3.5-5.1); Total Protein 6.5 G/DL (6.4-8.3); Troponin I Only 0.1 NG/ML (0.00-0.045)
[2017-04-10 18:05] LABS: Apearance,Urine CLEAR (Clear); Bilirubin,Urine Negative (Negative); Blood, Urine Small mg/dL (Negative); Glucose,Urine (UA) Negative (Negative); Ketones,Urine Negative (Negative); Nitrite,Urine Negative (Negative); Protein,Urine >=500 MG/DL; RBC,Urine 1 /HPF (0-4); Squamous Epithelial Cell,Urine Occasional /HPF (0-10); Urine Color Yellow (Yellow); Urine Specific Gravity 1.008 (1.001-1.035); Urine Urobilinogen < 2.0 EU/DL (0.2-1.0); WBC,Urine 1 /HPF (0-6)
[2017-04-10 18:14] LABS: Barbiturates Screen,Urine Negative (Negative); Benzodiazepines Screen,Urine Negative (Negative); Cannabinoid Screen,Urine Negative (Negative); Opiate Screen,Urine Negative (Negative); Phencyclidine Screen,Urine Negative (Negative)
[2017-04-10 18:14] LABS: Platelet Estimate Decreased
[2017-04-10] MEDS ORDERED: THIAMINE INJ 100 MG, FOLIC ACID INJ 1 MG, MAGNESIUM SULF INJ 2 GM, MULTIVITAMIN INJ 10 ... IV ONE (18:31)
[2017-04-10] MEDS ORDERED: cloNIDine 0.1 MG TABLET ONE (18:31)
[2017-04-10] MEDS ORDERED: cloNIDine 0.1 MG TABLET PO STA (18:31)
[2017-04-10] MEDS ORDERED: ONDANSETRON 4 MG/2 ML VIAL IV PRN (19:10)
[2017-04-10] MEDS ORDERED: ACETAMINOPHEN 325 MG TABLET PO PRN (19:10)
[2017-04-10] MEDS ORDERED: MAGNESIUM SULF RIDER 4 GM in PREMIX 1 EACH IV PRN (19:37)
[2017-04-10] MEDS ORDERED: MAGNESIUM SULF RIDER 2 GM in PREMIX 1 EACH IV PRN (19:37)
[2017-04-10] MEDS ORDERED: THIAMINE INJ 100 MG, FOLIC ACID INJ 1 MG, MAGNESIUM SULF INJ 2 GM, MULTIVITAMIN INJ 10 ... IV SCH (20:00)
[2017-04-10] MEDS ORDERED: MAGNESIUM SULF RIDER 4 GM in PREMIX 1 EACH IV ONE (20:23)
[2017-04-10] MEDS ORDERED: EZETIMIBE 10 MG TABLET PO SCH (21:00)
[2017-04-10] MEDS ORDERED: MONTELUKAST 10 MG TABLET PO SCH (21:00)
[2017-04-10] MEDS ORDERED: CITALOPRAM 20 MG TABLET PO SCH (21:00)
[2017-04-10] MEDS: LORazepam 2 MG/1 ML VIAL IV SCH (21:25)
[2017-04-10] MEDS: LABETALOL 200 MG TABLET PO SCH (21:26)
[2017-04-10 21:39] LABS: Troponin I Only 0.116 NG/ML (0.00-0.045)
[2017-04-11] MEDS: LORazepam 2 MG/1 ML VIAL IV SCH ×5 (00:21→15:39)
[2017-04-11 03:29] LABS: Eosinophils % 0.6 % (0.00-10.9); Hematocrit 34.8 VOL% (42.0-52.0); Hemoglobin 11.9 GM/DL (14.0-18.0); Immature Granulocytes % 0.3 %; Immature Granulocytes Absolute 0.01 #; Lymphocytes # 0.6 10*3/uL (1.4-4.0); Lymphocytes % 18.8 % (21.2-54.2); Mean Corpuscular HGB Conc 34.2 GM/DL (32-36); Mean Corpuscular Hemoglobin 32 PG (27-34); Mean Corpuscular Volume 94.8 FL (87-102); Mean Platelet Volume 12.4 FL (9.6-12.0); Monocytes # 0.5 10*3/uL (0.11-0.8); Monocytes % 14.4 % (1.7-12.7); Neutrophils % 64.9 % (38.7-73.9); Platelet Count 76 T/CUMM (130-400); Red Blood Count 3.67 MC/CUMM (3.8-5.5); Red Cell Distribution Width 15.3 % (9.3-17.3); White Blood Count 3.1 T/CUMM (4-12)
[2017-04-11 04:04] LABS: Calcium 7.4 MG/DL (8.5-10.1); Osmolality,Calculated 279.1 MOS/KG (273-304); Risk Ratio 1.77; Thyroid Stimulating Hormone 1.83 uIU/ml (0.358-3.74); VLDL CHOLESTEROL 9.4 MG/DL
[2017-04-11 04:25] LABS: Troponin I Only 0.095 NG/ML (0.00-0.045)
[2017-04-11] MEDS: LABETALOL 200 MG TABLET PO SCH (08:28)
[2017-04-11] MEDS ORDERED: ATORVASTATIN 40 MG TABLET PO SCH (09:00)
[2017-04-11] MEDS ORDERED: MULTIVITA IV SCH (09:00)
[2017-04-11] MEDS ORDERED: [UNRECOGNIZED DRUG - OTHER] IV SCH (09:00)
[2017-04-11] MEDS ORDERED: FOLIC ACID 1 MG IV SCH (09:00)
[2017-04-11] MEDS ORDERED: THIAMINE IV SCH (09:00)
[2017-04-11] MEDS ORDERED: LOSARTAN 50 MG TABLET PO SCH (09:00)
[2017-04-11] MEDS ORDERED: NITROGLYCERIN SL 0.4 MG TABLET SL PRN (09:16)
[2017-04-11] MEDS ORDERED: ASPIRIN EC 81 MG TABLET PO SCH (09:30)
[2017-04-11] MEDS ORDERED: ENOXAPARIN 40 MG/0.4 ML SYRINGE SUBCUT SCH (16:00)
[2017-04-11 17:11] VITALS: BP 158/94
== END 2017-04-11 19:56 | disposition home or self-care (01) ==
LOC: EDBD → EDUNIT# → N.EDINP 16:37 → N.ED 16:37 → N.TELEN 19:55
PROVIDERS: ADMIT Internal Medicine; ATTEND Internal Medicine

== ENCOUNTER 2017-06-06 10:37 | Observation (INO) ==
[2017-06-06] MEDS ORDERED: ALBUTEROL/IPRATROPIUM 3 ML NEB RESP TX STA (10:56)
[2017-06-06] MEDS ORDERED: FUROSEMIDE 100 MG/10 ML VIAL IV STA (10:56)
[2017-06-06] MEDS ORDERED: methylPREDNISolone SOD SUC 125 MG/2 ML VIAL IV STA (10:56)
[2017-06-06] MEDS ORDERED: NITROGLYCERIN 2% OINT 1 INCH/GM PACK TOP STA (10:56)
[2017-06-06] MEDS ORDERED: cefTRIAXone 1,000 MG in SODIUM CHLORIDE 0.9% 100 ML IV STA (10:56)
[2017-06-06] MEDS ORDERED: MORPHINE 2 MG/1 ML SYRINGE IV STA (10:56)
[2017-06-06] MEDS ORDERED: LORazepam 2 MG/1 ML VIAL IV STA (10:56)
[2017-06-06] MEDS ORDERED: ASPIRIN 325 MG TABLET PO STA (10:56)
[2017-06-06] MEDS ORDERED: ONDANSETRON 4 MG/2 ML VIAL IV STA (10:56)
[2017-06-06] MEDS ORDERED: NITROGLYCERIN 2% OINT 1 INCH/GM PACK TOP ONE (11:07)
[2017-06-06] MEDS ORDERED: FUROSEMIDE 40 MG/4 ML VIAL ONE (11:07)
[2017-06-06] MEDS ORDERED: ONDANSETRON 4 MG/2 ML VIAL ONE (11:08)
[2017-06-06] MEDS ORDERED: MORPHINE 2 MG/1 ML SYRINGE ONE (11:08)
[2017-06-06] MEDS ORDERED: cefTRIAXone 1,000 MG VIAL ONE (11:08)
[2017-06-06] MEDS ORDERED: FUROSEMIDE 20 MG/2 ML VIAL ONE (11:08)
[2017-06-06] MEDS ORDERED: ASPIRIN 325 MG TABLET ONE (11:08)
[2017-06-06] MEDS ORDERED: methylPREDNISolone SOD SUC 125 MG/2 ML VIAL ONE (11:08)
[2017-06-06] MEDS ORDERED: LORazepam 2 MG/1 ML VIAL ONE (11:09)
[2017-06-06 11:36] LABS: Basophils % 0.8 % (0.0-0.8); Eosinophils % 0.3 % (0.00-10.9); Hematocrit 41.1 VOL% (42.0-52.0); Hemoglobin 14.9 GM/DL (14.0-18.0); Immature Granulocytes % 0.5 %; Immature Granulocytes Absolute 0.02 #; Lymphocytes # 0.3 10*3/uL (1.4-4.0); Lymphocytes % 8.9 % (21.2-54.2); Mean Corpuscular HGB Conc 36.3 GM/DL (32-36); Mean Corpuscular Hemoglobin 34 PG (27-34); Mean Corpuscular Volume 92.8 FL (87-102); Monocytes # 0.5 10*3/uL (0.11-0.8); Monocytes % 13.1 % (1.7-12.7); Neutrophils # 2.9 10*3/uL (1.4-7.4); Neutrophils % 76.4 % (38.7-73.9); Platelet Count 116 T/CUMM (130-400); Red Blood Count 4.43 MC/CUMM (3.8-5.5); Red Cell Distribution Width 14.5 % (9.3-17.3); White Blood Count 3.8 T/CUMM (4-12)
[2017-06-06] MEDS ORDERED: cefTRIAXone 1,000 MG in SYRINGE 1 EACH IV STA (11:38)
[2017-06-06 11:43] LABS: ABG Base Excess -1.1 MMOL/L (-2.5-2.5); ABG HCO3 22.7 MMOL/L (20-26); ABG Oxygen Saturation 92.4 % (95-100); ABG PCO2 35.2 MM HG (35-48); ABG PH 7.427 (7.35-7.45); ABG PO2 72.3 MM HG (80-95); ABG TCO2 23.8 MMOL/L (23-27)
[2017-06-06 11:46] LABS: INR 0.9
[2017-06-06 11:57] LABS: Alanine Aminotransferase 88 U/L (16-61); Albumin 2.5 G/DL (3.4-5.0); Alkaline Phosphatase 97 U/L (45-117); Aspartate Amino Transferase 158 U/L (0-37); Blood Urea Nitrogen 5 MG/DL (7-18); Calcium 8.5 MG/DL (8.5-10.1); Glucose 100 MG/DL (74-106); Osmolality,Calculated 279.1 MOS/KG (273-304); Potassium 3.8 MMOL/L (3.5-5.1); Sodium 142 MMOL/L (136-145); Total Protein 6.3 G/DL (6.4-8.3)
[2017-06-06 11:58] LABS: Troponin I Only 0.063 NG/ML (0.00-0.045)
[2017-06-06] MEDS ORDERED: MAGNESIUM SULF RIDER 2 GM in PREMIX 1 EACH IV STA (12:03)
[2017-06-06] MEDS ORDERED: MAGNESIUM SULF RIDER 50 ML IV ONE (12:20)
[2017-06-06] MEDS ORDERED: NICOTINE 21 MG/24 HR PATCH TRANSDERM PRN (14:42)
[2017-06-06] MEDS ORDERED: ACETAMINOPHEN 325 MG TABLET PO PRN (14:42)
[2017-06-06] MEDS ORDERED: ENOXAPARIN 40 MG/0.4 ML SYRINGE SUBCUT SCH (15:00)
[2017-06-06] MEDS ORDERED: SODIUM CHLORIDE 0.45% 1,000 ML IV SCH (17:00)
[2017-06-06] MEDS ORDERED: MAGNESIUM SULF RIDER 2 GM in PREMIX 1 EACH IV PRN (17:00)
[2017-06-06] MEDS ORDERED: MAGNESIUM SULF RIDER 4 GM in PREMIX 1 EACH IV PRN (17:00)
[2017-06-06 17:30] LABS: Apearance,Urine CLEAR (Clear); Bilirubin,Urine Negative (Negative); Blood, Urine Negative (Negative); Glucose,Urine (UA) Negative (Negative); Ketones,Urine Negative (Negative); Mucus,Urine Occasional /LPF (Occasional); Nitrite,Urine Negative (Negative); Protein,Urine >=500 MG/DL; RBC,Urine 1 /HPF (0-4); Squamous Epithelial Cell,Urine Occasional /HPF (0-10); Urine Color Yellow (Yellow); Urine Specific Gravity 1.009 (1.001-1.035); Urine Urobilinogen < 2.0 EU/DL (0.2-1.0); WBC,Urine <1 /HPF (0-6)
[2017-06-06 17:38] LABS: Barbiturates Screen,Urine Negative (Negative); Benzodiazepines Screen,Urine Negative (Negative); Cannabinoid Screen,Urine Negative (Negative); Opiate Screen,Urine Positive (Negative); Phencyclidine Screen,Urine Negative (Negative)
[2017-06-06] MEDS: FOLIC ACID 1 MG TABLET PO SCH ×2 (18:00→20:40)
[2017-06-06] MEDS: THIAMINE 100 MG TABLET PO SCH ×2 (18:00→20:40)
[2017-06-06] MEDS: ALPRAZolam 0.25 MG TABLET PO SCH (18:01)
[2017-06-06] MEDS: LABETALOL 200 MG TABLET PO SCH (20:40)
[2017-06-06] MEDS ORDERED: MONTELUKAST 10 MG TABLET PO SCH (21:00)
[2017-06-06] MEDS ORDERED: CITALOPRAM 20 MG TABLET PO SCH (21:00)
[2017-06-06] MEDS ORDERED: EZETIMIBE 10 MG TABLET PO SCH (21:00)
[2017-06-06] MEDS ORDERED: ASPIRIN 325 MG TABLET PO SCH (21:00)
[2017-06-06] MEDS ORDERED: ATORVASTATIN 40 MG TABLET PO SCH (21:00)
[2017-06-07] MEDS ORDERED: ALUMINUM/MAGNES/SIMETH MAX STR 30 ML UDCUP PO PRN (00:02)
[2017-06-07] MEDS: ALPRAZolam 0.25 MG TABLET PO SCH ×2 (00:11→09:06)
[2017-06-07 04:48] LABS: Hematocrit 35.1 VOL% (42.0-52.0); Immature Granulocytes % 0.4 %; Immature Granulocytes Absolute 0.01 #; Lymphocytes # 0.3 10*3/uL (1.4-4.0); Lymphocytes % 9.6 % (21.2-54.2); Mean Corpuscular HGB Conc 35.6 GM/DL (32-36); Mean Corpuscular Hemoglobin 33 PG (27-34); Mean Corpuscular Volume 92.6 FL (87-102); Mean Platelet Volume 12.7 FL (9.6-12.0); Monocytes # 0.5 10*3/uL (0.11-0.8); Neutrophils # 2.1 10*3/uL (1.4-7.4); Red Blood Count 3.79 MC/CUMM (3.8-5.5); Red Cell Distribution Width 14.5 % (9.3-17.3); White Blood Count 2.8 T/CUMM (4-12)
[2017-06-07 04:58] LABS: Hemoglobin 12.5 GM/DL (14.0-18.0)
[2017-06-07 04:59] LABS: Platelet Count 89 T/CUMM (130-400)
[2017-06-07 05:15] LABS: Calcium 8.1 MG/DL (8.5-10.1); Osmolality,Calculated 268.1 MOS/KG (273-304); Potassium 4.1 MMOL/L (3.5-5.1)
[2017-06-07 05:26] LABS: Lymphocytes 8 % (20-55); Nucleated Red Blood Cells 1 (0-5); Platelet Estimate Decreased; Segmented Neutrophils 83 % (50-85); Total Cells Counted 100
[2017-06-07 05:27] LABS: Giant Platelets Few; Hypochromasia 1+; Ovalocytes Slight
[2017-06-07] MEDS ORDERED: LOSARTAN 50 MG TABLET PO SCH (09:00)
[2017-06-07] MEDS ORDERED: ASPIRIN EC 81 MG TABLET PO SCH (09:00)
[2017-06-07] MEDS ORDERED: FUROSEMIDE 20 MG TABLET PO SCH (09:00)
[2017-06-07] MEDS: LABETALOL 200 MG TABLET PO SCH (09:07)
[2017-06-07] MEDS: FOLIC ACID 1 MG TABLET PO SCH (09:07)
[2017-06-07] MEDS: THIAMINE 100 MG TABLET PO SCH (09:07)
[2017-06-07 11:35] VITALS: BP 139/100
[2017-06-07] MEDS ORDERED: amLODIPine 5 MG TABLET PO SCH (12:30)
== END 2017-06-07 14:57 | disposition home or self-care (01) ==
LOC: EDBD → EDUNIT# → N.ED 10:37 → INTOOBSV 13:36 → N.EDINP 13:36 → N.TELEN 15:31
PROVIDERS: ADMIT Internal Medicine Geriatric Medicine; ATTEND Internal Medicine Geriatric Medicine

== ENCOUNTER 2017-07-24 09:36 | Inpatient (IN) ==
[2017-07-24] MEDS ORDERED: NITROGLYCERIN 2% OINT 1 INCH/GM PACK TOP STA (09:58)
[2017-07-24] MEDS ORDERED: LORazepam 2 MG/1 ML VIAL IV STA (09:58)
[2017-07-24] MEDS ORDERED: ASPIRIN 325 MG TABLET PO STA (09:58)
[2017-07-24] MEDS ORDERED: ONDANSETRON 4 MG/2 ML VIAL IV STA (09:58)
[2017-07-24] MEDS ORDERED: PANTOPRAZOLE 40 MG VIAL IV STA (09:58)
[2017-07-24] MEDS ORDERED: ASPIRIN 325 MG TABLET ONE (10:03)
[2017-07-24] MEDS ORDERED: LORazepam 2 MG/1 ML VIAL ONE (10:04)
[2017-07-24] MEDS ORDERED: NITROGLYCERIN 2% OINT 1 INCH/GM PACK TOP ONE (10:05)
[2017-07-24] MEDS ORDERED: PANTOPRAZOLE 40 MG VIAL IV ONE (10:05)
[2017-07-24] MEDS ORDERED: ONDANSETRON 4 MG/2 ML VIAL ONE (10:06)
[2017-07-24 10:09] LABS: Hemoglobin 13.3 GM/DL (14.0-18.0); White Blood Count 4.3 T/CUMM (4-12)
[2017-07-24 10:10] LABS: Basophils # 0.1 10*3/uL (0.0-0.2); Basophils % 1.4 % (0.0-0.8); Eosinophils % 0.5 % (0.00-10.9); Hematocrit 38.9 VOL% (42.0-52.0); Immature Granulocytes % 0.2 %; Immature Granulocytes Absolute 0.01 #; Lymphocytes # 0.5 10*3/uL (1.4-4.0); Lymphocytes % 12.1 % (21.2-54.2); Mean Corpuscular HGB Conc 34.2 GM/DL (32-36); Mean Corpuscular Hemoglobin 32 PG (27-34); Mean Corpuscular Volume 94.9 FL (87-102); Mean Platelet Volume 11.6 FL (9.6-12.0); Monocytes # 0.4 10*3/uL (0.11-0.8); Monocytes % 8.6 % (1.7-12.7); Neutrophils # 3.3 10*3/uL (1.4-7.4); Neutrophils % 77.2 % (38.7-73.9); Platelet Count 86 T/CUMM (130-400)
[2017-07-24 10:21] LABS: PT Patient Result 10.1 SECS
[2017-07-24 10:34] LABS: Alanine Aminotransferase 74 U/L (16-61); Albumin 2.4 G/DL (3.4-5.0); Alkaline Phosphatase 82 U/L (45-117); Aspartate Amino Transferase 135 U/L (0-37); Blood Urea Nitrogen 11 MG/DL (7-18); Calcium 7.7 MG/DL (8.5-10.1); Glucose 90 MG/DL (74-106); Osmolality,Calculated 279.3 MOS/KG (273-304); Potassium 3.7 MMOL/L (3.5-5.1); Sodium 141 MMOL/L (136-145)
[2017-07-24 10:35] LABS: Amylase 101 U/L (25-115); Troponin I Only 0.048 NG/ML (0.00-0.045)
[2017-07-24 11:43] LABS: Apearance,Urine CLEAR (Clear); Bilirubin,Urine Negative (Negative); Blood, Urine Negative (Negative); Glucose,Urine (UA) Negative (Negative); Ketones,Urine 5 mg/dL (Negative); Mucus,Urine Occasional /LPF (Occasional); Nitrite,Urine Negative (Negative); Protein,Urine >=500 MG/DL; RBC,Urine <1 /HPF (0-4); Squamous Epithelial Cell,Urine Occasional /HPF (0-10); Urine Color Yellow (Yellow); Urine Urobilinogen < 2.0 EU/DL (0.2-1.0); WBC,Urine <1 /HPF (0-6)
[2017-07-24 11:53] LABS: Barbiturates Screen,Urine Negative (Negative); Benzodiazepines Screen,Urine Negative (Negative); Cannabinoid Screen,Urine Negative (Negative); Opiate Screen,Urine Negative (Negative); Phencyclidine Screen,Urine Negative (Negative)
[2017-07-24] MEDS ORDERED: SODIUM CHLORIDE 0.9% 1,000 ML IV STA (11:54)
[2017-07-24] MEDS ORDERED: ENOXAPARIN 100 MG/ML SYRINGE SUBCUT STA (14:22)
[2017-07-24] MEDS ORDERED: ENOXAPARIN 100 MG/ML SYRINGE SUBCUT ONE (14:39)
[2017-07-24] MEDS ORDERED: ONDANSETRON 4 MG/2 ML VIAL IV PRN (14:43)
[2017-07-24] MEDS ORDERED: ACETAMINOPHEN 325 MG TABLET PO PRN (14:43)
[2017-07-24 15:11] LABS: Folate 10.9 NG/ML (5.4-24.0)
[2017-07-24] MEDS: ENOXAPARIN 100 MG/ML SYRINGE SUBCUT SCH (16:05)
[2017-07-24] MEDS ORDERED: methylPREDNISolone SOD SUC 40 MG/1 ML VIAL ONE (16:06)
[2017-07-24] MEDS: THIAMINE INJ 100 MG, FOLIC ACID INJ 1 MG, MULTIVITAMIN INJ 10 ML in SODIUM CHLORIDE 0.9... IV SCH (16:10)
[2017-07-24] MEDS: methylPREDNISolone SOD SUC 40 MG/1 ML VIAL IV SCH ×2 (16:10→23:38)
[2017-07-24] MEDS: NICOTINE 21 MG/24 HR PATCH TRANSDERM SCH (16:11)
[2017-07-24] MEDS: chlordiazePOXIDE 25 MG CAPSULE PO SCH ×2 (18:24→23:37)
[2017-07-24] MEDS: ALBUTEROL/IPRATROPIUM 3 ML NEB RESP TX SCH (19:35)
[2017-07-24] MEDS ORDERED: LABETALOL 200 MG TABLET PO SCH (21:00)
[2017-07-24] MEDS: ATORVASTATIN 40 MG TABLET PO SCH (21:22)
[2017-07-24] MEDS: CITALOPRAM 20 MG TABLET PO SCH (21:22)
[2017-07-24] MEDS: MONTELUKAST 10 MG TABLET PO SCH (21:22)
[2017-07-24] MEDS: DOCUSATE SODIUM 100 MG CAPSULE PO SCH (21:22)
[2017-07-24] MEDS: EZETIMIBE 10 MG TABLET PO SCH (21:22)
[2017-07-24] MEDS: METOPROLOL TARTRATE 50 MG TABLET PO SCH (21:22)
[2017-07-24] MEDS: ZALEPLON 5 MG CAPSULE PO PRN (21:25)
[2017-07-25] MEDS: ALBUTEROL/IPRATROPIUM 3 ML NEB RESP TX SCH ×4 (00:15→19:38)
[2017-07-25] MEDS: ENOXAPARIN 100 MG/ML SYRINGE SUBCUT SCH ×2 (02:52→14:37)
[2017-07-25] MEDS: LORazepam 2 MG/1 ML VIAL IV PRN (03:37)
[2017-07-25 06:27] LABS: Basophils % 0.4 % (0.0-0.8); Hematocrit 34.8 VOL% (42.0-52.0); Hemoglobin 12.3 GM/DL (14.0-18.0); Immature Granulocytes % 0.4 %; Immature Granulocytes Absolute 0.01 #; Lymphocytes # 0.2 10*3/uL (1.4-4.0); Lymphocytes % 8.1 % (21.2-54.2); Mean Corpuscular HGB Conc 35.3 GM/DL (32-36); Mean Corpuscular Hemoglobin 33 PG (27-34); Mean Corpuscular Volume 94.6 FL (87-102); Mean Platelet Volume 12.8 FL (9.6-12.0); Monocytes # 0.1 10*3/uL (0.11-0.8); Monocytes % 4.2 % (1.7-12.7); Neutrophils # 2.5 10*3/uL (1.4-7.4); Neutrophils % 86.9 % (38.7-73.9); Red Blood Count 3.68 MC/CUMM (3.8-5.5); Red Cell Distribution Width 13.7 % (9.3-17.3); White Blood Count 2.9 T/CUMM (4-12)
[2017-07-25 06:30] LABS: Platelet Count 80 T/CUMM (130-400)
[2017-07-25] MEDS: methylPREDNISolone SOD SUC 40 MG/1 ML VIAL IV SCH ×3 (06:40→23:22)
[2017-07-25] MEDS: chlordiazePOXIDE 25 MG CAPSULE PO SCH ×4 (06:40→23:25)
[2017-07-25 07:03] LABS: Albumin 2.1 G/DL (3.4-5.0); Bilirubin,Total 0.8 MG/DL (0.2-1.0); Calcium 7.3 MG/DL (8.5-10.1); Osmolality,Calculated 277.5 MOS/KG (273-304); Potassium 4.4 MMOL/L (3.5-5.1); Total Protein 5.5 G/DL (6.4-8.3)
[2017-07-25] MEDS ORDERED: MAGNESIUM SULF RIDER 4 GM in PREMIX 1 EACH IV PRN (07:35)
[2017-07-25] MEDS: CALCIUM (CARBONATE)/VITAMIN D 500 MG-200 UNIT TABLET PO SCH (09:10)
[2017-07-25] MEDS: LOSARTAN 50 MG TABLET PO SCH (09:11)
[2017-07-25] MEDS: METOPROLOL TARTRATE 50 MG TABLET PO SCH ×2 (09:11→21:16)
[2017-07-25] MEDS: FOLIC ACID 1 MG TABLET PO SCH (09:11)
[2017-07-25] MEDS: DOCUSATE SODIUM 100 MG CAPSULE PO SCH ×2 (09:11→21:15)
[2017-07-25] MEDS: PANTOPRAZOLE 40 MG TABLET PO SCH (09:11)
[2017-07-25] MEDS: MULTIVITAMIN (BEROCCA) TABLET PO SCH (09:11)
[2017-07-25] MEDS: MAGNESIUM SULF RIDER 2 GM in PREMIX 1 EACH IV PRN ×2 (09:13→11:06)
[2017-07-25] MEDS: NICOTINE 21 MG/24 HR PATCH TRANSDERM SCH (09:13)
[2017-07-25] MEDS: THIAMINE INJ 100 MG, FOLIC ACID INJ 1 MG, MULTIVITAMIN INJ 10 ML in SODIUM CHLORIDE 0.9... IV SCH (16:37)
[2017-07-25] MEDS: WARFARIN 5 MG TABLET PO SCH (17:50)
[2017-07-25] MEDS: CITALOPRAM 20 MG TABLET PO SCH (21:15)
[2017-07-25] MEDS: EZETIMIBE 10 MG TABLET PO SCH (21:16)
[2017-07-25] MEDS: MONTELUKAST 10 MG TABLET PO SCH (21:16)
[2017-07-25] MEDS: ATORVASTATIN 40 MG TABLET PO SCH (21:16)
[2017-07-26] MEDS: ALBUTEROL/IPRATROPIUM 3 ML NEB RESP TX SCH ×4 (00:03→19:39)
[2017-07-26] MEDS: hydrALAZINE 20 MG/1 ML VIAL IV PRN ×2 (00:07→08:46)
[2017-07-26] MEDS: ENOXAPARIN 100 MG/ML SYRINGE SUBCUT SCH ×2 (03:09→17:01)
[2017-07-26] MEDS: LORazepam 2 MG/1 ML VIAL IV PRN ×3 (03:17→14:30)
[2017-07-26] MEDS: methylPREDNISolone SOD SUC 40 MG/1 ML VIAL IV SCH ×4 (06:04→23:33)
[2017-07-26] MEDS: chlordiazePOXIDE 25 MG CAPSULE PO SCH ×2 (06:04→11:00)
[2017-07-26 06:05] LABS: Hematocrit 37.9 VOL% (42.0-52.0); Hemoglobin 13.6 GM/DL (14.0-18.0); Immature Granulocytes % 0.6 %; Immature Granulocytes Absolute 0.02 #; Lymphocytes # 0.2 10*3/uL (1.4-4.0); Mean Corpuscular HGB Conc 35.9 GM/DL (32-36); Mean Corpuscular Hemoglobin 33 PG (27-34); Mean Corpuscular Volume 93.1 FL (87-102); Monocytes # 0.2 10*3/uL (0.11-0.8); Monocytes % 5.8 % (1.7-12.7); Neutrophils % 86.6 % (38.7-73.9); Platelet Count 97 T/CUMM (130-400); Red Blood Count 4.07 MC/CUMM (3.8-5.5); Red Cell Distribution Width 13.8 % (9.3-17.3); White Blood Count 3.5 T/CUMM (4-12)
[2017-07-26 06:07] LABS: PT Patient Result 10.5 SECS; Partial Thromboplastin Time 35.9 SECS (0-40)
[2017-07-26 06:30] LABS: Albumin 2.3 G/DL (3.4-5.0); Bilirubin,Total 1.2 MG/DL (0.2-1.0); Calcium 7.7 MG/DL (8.5-10.1); Total Protein 5.4 G/DL (6.4-8.3)
[2017-07-26 06:31] LABS: Osmolality,Calculated 277.7 MOS/KG (273-304); Potassium 4.2 MMOL/L (3.5-5.1)
[2017-07-26] MEDS: MULTIVITAMIN (BEROCCA) TABLET PO SCH (08:48)
[2017-07-26] MEDS: CALCIUM (CARBONATE)/VITAMIN D 500 MG-200 UNIT TABLET PO SCH (08:49)
[2017-07-26] MEDS: METOPROLOL TARTRATE 50 MG TABLET PO SCH ×2 (08:50→22:11)
[2017-07-26] MEDS: LOSARTAN 50 MG TABLET PO SCH (08:50)
[2017-07-26] MEDS: PANTOPRAZOLE 40 MG TABLET PO SCH (08:51)
[2017-07-26] MEDS: DOCUSATE SODIUM 100 MG CAPSULE PO SCH ×2 (08:51→22:10)
[2017-07-26] MEDS: FOLIC ACID 1 MG TABLET PO SCH (08:51)
[2017-07-26] MEDS: NICOTINE 21 MG/24 HR PATCH TRANSDERM SCH (08:52)
[2017-07-26] MEDS ORDERED: chlordiazePOXIDE 25 MG CAPSULE PO PRN (16:34)
[2017-07-26] MEDS: CLORAZEPATE 7.5 MG TABLET PO PRN (16:57)
[2017-07-26] MEDS: WARFARIN 5 MG TABLET PO SCH (17:00)
[2017-07-26] MEDS: THIAMINE INJ 100 MG, FOLIC ACID INJ 1 MG, MULTIVITAMIN INJ 10 ML in SODIUM CHLORIDE 0.9... IV SCH ×2 (17:01→17:08)
[2017-07-26] MEDS: CITALOPRAM 20 MG TABLET PO SCH (22:10)
[2017-07-26] MEDS: EZETIMIBE 10 MG TABLET PO SCH (22:10)
[2017-07-26] MEDS: ATORVASTATIN 40 MG TABLET PO SCH (22:10)
[2017-07-26] MEDS: MONTELUKAST 10 MG TABLET PO SCH (22:11)
[2017-07-27] MEDS: hydrALAZINE 20 MG/1 ML VIAL IV PRN ×6 (01:05→16:51)
[2017-07-27] MEDS: ALBUTEROL/IPRATROPIUM 3 ML NEB RESP TX SCH ×4 (01:58→20:02)
[2017-07-27] MEDS: ENOXAPARIN 100 MG/ML SYRINGE SUBCUT SCH ×2 (02:47→14:40)
[2017-07-27] MEDS: methylPREDNISolone SOD SUC 40 MG/1 ML VIAL IV SCH ×3 (06:04→22:53)
[2017-07-27 06:19] LABS: Hematocrit 40.8 VOL% (42.0-52.0); Hemoglobin 14.3 GM/DL (14.0-18.0); Immature Granulocytes % 0.5 %; Immature Granulocytes Absolute 0.02 #; Lymphocytes # 0.3 10*3/uL (1.4-4.0); Lymphocytes % 6.4 % (21.2-54.2); Mean Corpuscular Hemoglobin 33 PG (27-34); Mean Corpuscular Volume 93.4 FL (87-102); Monocytes # 0.3 10*3/uL (0.11-0.8); Monocytes % 6.2 % (1.7-12.7); Neutrophils # 3.7 10*3/uL (1.4-7.4); Neutrophils % 86.9 % (38.7-73.9); Platelet Count 114 T/CUMM (130-400); Red Blood Count 4.37 MC/CUMM (3.8-5.5); White Blood Count 4.2 T/CUMM (4-12)
[2017-07-27 06:26] LABS: PT Patient Result 10.4 SECS
[2017-07-27 06:56] LABS: Calcium 8.6 MG/DL (8.5-10.1); Osmolality,Calculated 278.5 MOS/KG (273-304); Potassium 4.3 MMOL/L (3.5-5.1)
[2017-07-27] MEDS: METOPROLOL TARTRATE 50 MG TABLET PO SCH (08:59)
[2017-07-27] MEDS: DOCUSATE SODIUM 100 MG CAPSULE PO SCH ×2 (08:59→20:13)
[2017-07-27] MEDS: MULTIVITAMIN (BEROCCA) TABLET PO SCH (08:59)
[2017-07-27] MEDS: LOSARTAN 50 MG TABLET PO SCH (08:59)
[2017-07-27] MEDS: CALCIUM (CARBONATE)/VITAMIN D 500 MG-200 UNIT TABLET PO SCH (09:00)
[2017-07-27] MEDS: FOLIC ACID 1 MG TABLET PO SCH (09:00)
[2017-07-27] MEDS: NICOTINE 21 MG/24 HR PATCH TRANSDERM SCH (09:00)
[2017-07-27] MEDS: PANTOPRAZOLE 40 MG TABLET PO SCH (09:01)
[2017-07-27] MEDS: MAGNESIUM SULF RIDER 2 GM in PREMIX 1 EACH IV PRN (11:27)
[2017-07-27] MEDS: THIAMINE INJ 100 MG, FOLIC ACID INJ 1 MG, MULTIVITAMIN INJ 10 ML in SODIUM CHLORIDE 0.9... IV SCH (16:50)
[2017-07-27] MEDS: WARFARIN 7.5 MG TABLET PO SCH (17:04)
[2017-07-27] MEDS: ATORVASTATIN 40 MG TABLET PO SCH (20:13)
[2017-07-27] MEDS: CARVEDILOL 12.5 MG TABLET PO SCH (20:13)
[2017-07-27] MEDS: EZETIMIBE 10 MG TABLET PO SCH (20:13)
[2017-07-27] MEDS: MONTELUKAST 10 MG TABLET PO SCH (20:14)
[2017-07-27] MEDS: CITALOPRAM 20 MG TABLET PO SCH (20:14)
[2017-07-27] MEDS: CLORAZEPATE 7.5 MG TABLET PO PRN (20:15)
[2017-07-28] MEDS: ALBUTEROL/IPRATROPIUM 3 ML NEB RESP TX SCH ×4 (02:31→19:25)
[2017-07-28] MEDS: ENOXAPARIN 100 MG/ML SYRINGE SUBCUT SCH ×2 (03:38→16:14)
[2017-07-28] MEDS: LORazepam 2 MG/1 ML VIAL IV PRN (05:19)
[2017-07-28] MEDS: hydrALAZINE 20 MG/1 ML VIAL IV PRN ×2 (05:20→12:54)
[2017-07-28] MEDS: methylPREDNISolone SOD SUC 40 MG/1 ML VIAL IV SCH ×2 (06:36→16:14)
[2017-07-28] MEDS: CARVEDILOL 12.5 MG TABLET PO SCH ×2 (10:47→17:10)
[2017-07-28] MEDS: CALCIUM (CARBONATE)/VITAMIN D 500 MG-200 UNIT TABLET PO SCH (10:47)
[2017-07-28] MEDS: MULTIVITAMIN (BEROCCA) TABLET PO SCH (10:47)
[2017-07-28] MEDS: amLODIPine 10 MG TABLET PO SCH (10:47)
[2017-07-28] MEDS: DOCUSATE SODIUM 100 MG CAPSULE PO SCH ×2 (10:47→20:54)
[2017-07-28] MEDS: FOLIC ACID 1 MG TABLET PO SCH (10:49)
[2017-07-28] MEDS: PANTOPRAZOLE 40 MG TABLET PO SCH (10:49)
[2017-07-28] MEDS: NICOTINE 21 MG/24 HR PATCH TRANSDERM SCH (10:49)
[2017-07-28] MEDS: LOSARTAN 50 MG TABLET PO SCH (10:50)
[2017-07-28] MEDS: CLORAZEPATE 7.5 MG TABLET PO PRN (13:02)
[2017-07-28] MEDS: THIAMINE INJ 100 MG, FOLIC ACID INJ 1 MG, MULTIVITAMIN INJ 10 ML in SODIUM CHLORIDE 0.9... IV SCH (16:15)
[2017-07-28] MEDS: WARFARIN 7.5 MG TABLET PO SCH (17:09)
[2017-07-28] MEDS: chlordiazePOXIDE 25 MG CAPSULE PO SCH ×2 (17:32→20:53)
[2017-07-28] MEDS: ATORVASTATIN 40 MG TABLET PO SCH (20:53)
[2017-07-28] MEDS: CITALOPRAM 20 MG TABLET PO SCH (20:53)
[2017-07-28] MEDS: EZETIMIBE 10 MG TABLET PO SCH (20:54)
[2017-07-28] MEDS: MONTELUKAST 10 MG TABLET PO SCH (20:54)
[2017-07-29] MEDS: ALBUTEROL/IPRATROPIUM 3 ML NEB RESP TX SCH ×4 (00:09→20:16)
[2017-07-29] MEDS: ENOXAPARIN 100 MG/ML SYRINGE SUBCUT SCH ×2 (04:00→14:15)
[2017-07-29] MEDS: methylPREDNISolone SOD SUC 40 MG/1 ML VIAL IV SCH ×3 (06:15→14:15)
[2017-07-29] MEDS: hydrALAZINE 20 MG/1 ML VIAL IV PRN (06:49)
[2017-07-29 07:23] LABS: Hematocrit 37.5 VOL% (42.0-52.0); Hemoglobin 13.1 GM/DL (14.0-18.0); Immature Granulocytes % 0.3 %; Immature Granulocytes Absolute 0.01 #; Lymphocytes # 0.2 10*3/uL (1.4-4.0); Lymphocytes % 6.1 % (21.2-54.2); Mean Corpuscular HGB Conc 34.9 GM/DL (32-36); Mean Corpuscular Hemoglobin 33 PG (27-34); Mean Corpuscular Volume 94.7 FL (87-102); Mean Platelet Volume 11.9 FL (9.6-12.0); Monocytes # 0.3 10*3/uL (0.11-0.8); Monocytes % 7.4 % (1.7-12.7); Neutrophils # 3.4 10*3/uL (1.4-7.4); Neutrophils % 86.2 % (38.7-73.9); Platelet Count 138 T/CUMM (130-400); Red Blood Count 3.96 MC/CUMM (3.8-5.5); Red Cell Distribution Width 14.2 % (9.3-17.3); White Blood Count 3.9 T/CUMM (4-12)
[2017-07-29 07:31] LABS: PT Patient Result 10.9 SECS
[2017-07-29 07:54] LABS: Albumin 2.1 G/DL (3.4-5.0); Bilirubin,Total 0.8 MG/DL (0.2-1.0); Calcium 8.2 MG/DL (8.5-10.1); Osmolality,Calculated 289.8 MOS/KG (273-304); Potassium 3.9 MMOL/L (3.5-5.1); Total Protein 5.6 G/DL (6.4-8.3)
[2017-07-29] MEDS: chlordiazePOXIDE 25 MG CAPSULE PO SCH ×3 (09:27→17:14)
[2017-07-29] MEDS: NICOTINE 21 MG/24 HR PATCH TRANSDERM SCH (09:27)
[2017-07-29] MEDS: LOSARTAN 50 MG TABLET PO SCH (09:27)
[2017-07-29] MEDS: CALCIUM (CARBONATE)/VITAMIN D 500 MG-200 UNIT TABLET PO SCH (09:27)
[2017-07-29] MEDS: DOCUSATE SODIUM 100 MG CAPSULE PO SCH ×2 (09:28→22:56)
[2017-07-29] MEDS: FOLIC ACID 1 MG TABLET PO SCH (09:28)
[2017-07-29] MEDS: amLODIPine 10 MG TABLET PO SCH (09:28)
[2017-07-29] MEDS: THIAMINE 100 MG TABLET PO SCH (09:28)
[2017-07-29] MEDS: CARVEDILOL 12.5 MG TABLET PO SCH ×2 (09:28→17:14)
[2017-07-29] MEDS: PANTOPRAZOLE 40 MG TABLET PO SCH (09:28)
[2017-07-29] MEDS: MULTIVITAMIN (BEROCCA) TABLET PO SCH (09:28)
[2017-07-29] MEDS: WARFARIN 10 MG TABLET PO SCH (17:14)
[2017-07-29] MEDS ORDERED: chlordiazePOXIDE 25 MG CAPSULE PO PRN (18:00)
[2017-07-29] MEDS: EZETIMIBE 10 MG TABLET PO SCH (22:56)
[2017-07-29] MEDS: ATORVASTATIN 40 MG TABLET PO SCH (22:56)
[2017-07-29] MEDS: MONTELUKAST 10 MG TABLET PO SCH (22:56)
[2017-07-29] MEDS: CITALOPRAM 20 MG TABLET PO SCH (22:56)
[2017-07-29] MEDS: ZALEPLON 5 MG CAPSULE PO PRN (22:56)
[2017-07-30] MEDS: ALBUTEROL/IPRATROPIUM 3 ML NEB RESP TX SCH ×4 (00:42→19:57)
[2017-07-30] MEDS: methylPREDNISolone SOD SUC 40 MG/1 ML VIAL IV SCH ×2 (02:29→13:26)
[2017-07-30] MEDS: ENOXAPARIN 100 MG/ML SYRINGE SUBCUT SCH ×2 (02:30→16:22)
[2017-07-30 04:53] LABS: Eosinophils % 0.3 % (0.00-10.9); Hematocrit 34.6 VOL% (42.0-52.0); Hemoglobin 12.2 GM/DL (14.0-18.0); Immature Granulocytes % 0.3 %; Immature Granulocytes Absolute 0.01 #; Lymphocytes # 0.5 10*3/uL (1.4-4.0); Mean Corpuscular HGB Conc 35.3 GM/DL (32-36); Mean Corpuscular Hemoglobin 33 PG (27-34); Mean Platelet Volume 12.7 FL (9.6-12.0); Monocytes # 0.6 10*3/uL (0.11-0.8); Monocytes % 14.8 % (1.7-12.7); Neutrophils # 2.6 10*3/uL (1.4-7.4); Neutrophils % 70.6 % (38.7-73.9); Platelet Count 149 T/CUMM (130-400); Red Blood Count 3.68 MC/CUMM (3.8-5.5); Red Cell Distribution Width 14.2 % (9.3-17.3); White Blood Count 3.7 T/CUMM (4-12)
[2017-07-30 04:55] LABS: INR 1.1; PT Patient Result 11.7 SECS
[2017-07-30 05:15] LABS: Calcium 8.1 MG/DL (8.5-10.1); Osmolality,Calculated 288.8 MOS/KG (273-304); Potassium 3.6 MMOL/L (3.5-5.1)
[2017-07-30] MEDS: amLODIPine 10 MG TABLET PO SCH (08:04)
[2017-07-30] MEDS: MULTIVITAMIN (BEROCCA) TABLET PO SCH (08:04)
[2017-07-30] MEDS: NICOTINE 21 MG/24 HR PATCH TRANSDERM SCH (08:05)
[2017-07-30] MEDS: THIAMINE 100 MG TABLET PO SCH (08:05)
[2017-07-30] MEDS: CALCIUM (CARBONATE)/VITAMIN D 500 MG-200 UNIT TABLET PO SCH (08:05)
[2017-07-30] MEDS: LOSARTAN 50 MG TABLET PO SCH (08:05)
[2017-07-30] MEDS: DOCUSATE SODIUM 100 MG CAPSULE PO SCH ×2 (08:05→21:27)
[2017-07-30] MEDS: CARVEDILOL 12.5 MG TABLET PO SCH ×2 (08:05→16:22)
[2017-07-30] MEDS: FOLIC ACID 1 MG TABLET PO SCH (08:05)
[2017-07-30] MEDS: PANTOPRAZOLE 40 MG TABLET PO SCH (08:15)
[2017-07-30] MEDS: CLORAZEPATE 7.5 MG TABLET PO PRN ×2 (13:27→21:26)
[2017-07-30] MEDS: WARFARIN 10 MG TABLET PO SCH (17:07)
[2017-07-30] MEDS: MONTELUKAST 10 MG TABLET PO SCH (21:26)
[2017-07-30] MEDS: CITALOPRAM 20 MG TABLET PO SCH (21:26)
[2017-07-30] MEDS: EZETIMIBE 10 MG TABLET PO SCH (21:26)
[2017-07-30] MEDS: ATORVASTATIN 40 MG TABLET PO SCH (21:26)
[2017-07-31] MEDS: ALBUTEROL/IPRATROPIUM 3 ML NEB RESP TX SCH ×4 (00:22→19:32)
[2017-07-31] MEDS: ENOXAPARIN 100 MG/ML SYRINGE SUBCUT SCH ×2 (03:59→14:00)
[2017-07-31] MEDS: methylPREDNISolone SOD SUC 40 MG/1 ML VIAL IV SCH ×2 (03:59→13:35)
[2017-07-31 06:04] LABS: Eosinophils % 0.9 % (0.00-10.9); Hematocrit 35.6 VOL% (42.0-52.0); Hemoglobin 12.3 GM/DL (14.0-18.0); Immature Granulocytes % 0.3 %; Immature Granulocytes Absolute 0.01 #; Lymphocytes # 0.5 10*3/uL (1.4-4.0); Lymphocytes % 14.2 % (21.2-54.2); Mean Corpuscular HGB Conc 34.6 GM/DL (32-36); Mean Corpuscular Hemoglobin 33 PG (27-34); Mean Corpuscular Volume 94.9 FL (87-102); Mean Platelet Volume 12.7 FL (9.6-12.0); Monocytes # 0.6 10*3/uL (0.11-0.8); Neutrophils # 2.4 10*3/uL (1.4-7.4); Neutrophils % 68.6 % (38.7-73.9); Platelet Count 170 T/CUMM (130-400); Red Blood Count 3.75 MC/CUMM (3.8-5.5); Red Cell Distribution Width 14.5 % (9.3-17.3); White Blood Count 3.4 T/CUMM (4-12)
[2017-07-31 06:10] LABS: INR 1.3
[2017-07-31 06:29] LABS: Calcium 8.1 MG/DL (8.5-10.1); Osmolality,Calculated 292.7 MOS/KG (273-304); Potassium 3.5 MMOL/L (3.5-5.1)
[2017-07-31 06:33] LABS: Band Neutrophils 4 % (0-10); Lymphocytes 21 % (20-55); Macrocytosis 1+; Platelet Estimate Normal; Segmented Neutrophils 67 % (50-85); Total Cells Counted 100
[2017-07-31] MEDS: THIAMINE 100 MG TABLET PO SCH (08:08)
[2017-07-31] MEDS: CARVEDILOL 12.5 MG TABLET PO SCH ×2 (08:08→17:11)
[2017-07-31] MEDS: amLODIPine 10 MG TABLET PO SCH (08:08)
[2017-07-31] MEDS: MULTIVITAMIN (BEROCCA) TABLET PO SCH (08:08)
[2017-07-31] MEDS: LOSARTAN 50 MG TABLET PO SCH (08:08)
[2017-07-31] MEDS: PANTOPRAZOLE 40 MG TABLET PO SCH (08:09)
[2017-07-31] MEDS: NICOTINE 21 MG/24 HR PATCH TRANSDERM SCH (08:09)
[2017-07-31] MEDS: FOLIC ACID 1 MG TABLET PO SCH (08:09)
[2017-07-31] MEDS: DOCUSATE SODIUM 100 MG CAPSULE PO SCH ×2 (08:09→21:05)
[2017-07-31] MEDS: CALCIUM (CARBONATE)/VITAMIN D 500 MG-200 UNIT TABLET PO SCH (08:09)
[2017-07-31] MEDS: WARFARIN 10 MG TABLET PO SCH (17:11)
[2017-07-31] MEDS: CITALOPRAM 20 MG TABLET PO SCH (21:05)
[2017-07-31] MEDS: ATORVASTATIN 40 MG TABLET PO SCH (21:05)
[2017-07-31] MEDS: CLORAZEPATE 7.5 MG TABLET PO PRN (21:05)
[2017-07-31] MEDS: MONTELUKAST 10 MG TABLET PO SCH (21:05)
[2017-07-31] MEDS: EZETIMIBE 10 MG TABLET PO SCH (21:05)
[2017-08-01] MEDS: ALBUTEROL/IPRATROPIUM 3 ML NEB RESP TX SCH ×4 (00:43→19:02)
[2017-08-01] MEDS: ENOXAPARIN 100 MG/ML SYRINGE SUBCUT SCH ×2 (03:02→14:48)
[2017-08-01] MEDS: methylPREDNISolone SOD SUC 40 MG/1 ML VIAL IV SCH ×2 (03:02→15:16)
[2017-08-01 05:22] LABS: Eosinophils % 0.2 % (0.00-10.9); Hemoglobin 13.2 GM/DL (14.0-18.0); Immature Granulocytes % 0.2 %; Immature Granulocytes Absolute 0.01 #; Lymphocytes # 0.4 10*3/uL (1.4-4.0); Lymphocytes % 8.1 % (21.2-54.2); Mean Corpuscular HGB Conc 33.8 GM/DL (32-36); Mean Corpuscular Hemoglobin 33 PG (27-34); Mean Corpuscular Volume 98.2 FL (87-102); Mean Platelet Volume 11.8 FL (9.6-12.0); Monocytes # 0.8 10*3/uL (0.11-0.8); Monocytes % 18.3 % (1.7-12.7); Neutrophils # 3.3 10*3/uL (1.4-7.4); Neutrophils % 73.2 % (38.7-73.9); Platelet Count 191 T/CUMM (130-400); Red Blood Count 3.97 MC/CUMM (3.8-5.5); Red Cell Distribution Width 14.3 % (9.3-17.3); White Blood Count 4.5 T/CUMM (4-12)
[2017-08-01 05:32] LABS: INR 1.6; PT Patient Result 16.2 SECS
[2017-08-01 05:43] LABS: Calcium 8.7 MG/DL (8.5-10.1); Osmolality,Calculated 292.6 MOS/KG (273-304); Potassium 3.7 MMOL/L (3.5-5.1)
[2017-08-01 06:02] LABS: Eosinophils 1 % (0-10); Giant Platelets Few; Hypochromasia 1+; Lymphocytes 9 % (20-55); Platelet Estimate Adequate; Segmented Neutrophils 71 % (50-85); Total Cells Counted 100
[2017-08-01] MEDS: NICOTINE 21 MG/24 HR PATCH TRANSDERM SCH (08:45)
[2017-08-01] MEDS: LOSARTAN 50 MG TABLET PO SCH (08:47)
[2017-08-01] MEDS: CARVEDILOL 12.5 MG TABLET PO SCH ×2 (08:47→17:30)
[2017-08-01] MEDS: MULTIVITAMIN (BEROCCA) TABLET PO SCH (08:47)
[2017-08-01] MEDS: CALCIUM (CARBONATE)/VITAMIN D 500 MG-200 UNIT TABLET PO SCH (08:47)
[2017-08-01] MEDS: THIAMINE 100 MG TABLET PO SCH (08:47)
[2017-08-01] MEDS: FOLIC ACID 1 MG TABLET PO SCH (08:48)
[2017-08-01] MEDS: DOCUSATE SODIUM 100 MG CAPSULE PO SCH ×2 (08:48→21:43)
[2017-08-01] MEDS: amLODIPine 10 MG TABLET PO SCH (08:48)
[2017-08-01] MEDS: PANTOPRAZOLE 40 MG TABLET PO SCH (08:48)
[2017-08-01] MEDS ORDERED: TUBERCULIN SKIN TEST 0.1 ML SYRINGE INTRADERM ONE (09:38)
[2017-08-01] MEDS: chlordiazePOXIDE 25 MG CAPSULE PO PRN (14:57)
[2017-08-01] MEDS: hydrALAZINE 20 MG/1 ML VIAL IV PRN ×2 (17:29→21:42)
[2017-08-01] MEDS: WARFARIN 10 MG TABLET PO SCH (17:30)
[2017-08-01] MEDS: ATORVASTATIN 40 MG TABLET PO SCH (21:43)
[2017-08-01] MEDS: MONTELUKAST 10 MG TABLET PO SCH (21:43)
[2017-08-01] MEDS: CITALOPRAM 20 MG TABLET PO SCH (21:43)
[2017-08-01] MEDS: EZETIMIBE 10 MG TABLET PO SCH (21:43)
[2017-08-02] MEDS: ALBUTEROL/IPRATROPIUM 3 ML NEB RESP TX SCH ×4 (00:26→19:39)
[2017-08-02] MEDS: ENOXAPARIN 100 MG/ML SYRINGE SUBCUT SCH ×2 (03:03→15:36)
[2017-08-02 07:40] LABS: INR 1.6; PT Patient Result 17.1 SECS
[2017-08-02] MEDS: DOCUSATE SODIUM 100 MG CAPSULE PO SCH ×2 (08:59→21:40)
[2017-08-02] MEDS: chlordiazePOXIDE 25 MG CAPSULE PO PRN (08:59)
[2017-08-02] MEDS: amLODIPine 10 MG TABLET PO SCH (08:59)
[2017-08-02] MEDS: predniSONE 20 MG TABLET PO SCH (08:59)
[2017-08-02] MEDS: MULTIVITAMIN (BEROCCA) TABLET PO SCH (08:59)
[2017-08-02] MEDS: LOSARTAN 50 MG TABLET PO SCH (08:59)
[2017-08-02] MEDS: CALCIUM (CARBONATE)/VITAMIN D 500 MG-200 UNIT TABLET PO SCH (08:59)
[2017-08-02] MEDS: CARVEDILOL 12.5 MG TABLET PO SCH ×2 (09:00→17:47)
[2017-08-02] MEDS: NICOTINE 21 MG/24 HR PATCH TRANSDERM SCH (09:00)
[2017-08-02] MEDS: FOLIC ACID 1 MG TABLET PO SCH (09:00)
[2017-08-02] MEDS: THIAMINE 100 MG TABLET PO SCH (09:00)
[2017-08-02] MEDS: PANTOPRAZOLE 40 MG TABLET PO SCH (09:00)
[2017-08-02] MEDS ORDERED: WARFARIN 10 MG TABLET PO SCH (18:00)
[2017-08-02] MEDS: ATORVASTATIN 40 MG TABLET PO SCH (21:39)
[2017-08-02] MEDS: CITALOPRAM 20 MG TABLET PO SCH (21:39)
[2017-08-02] MEDS: EZETIMIBE 10 MG TABLET PO SCH (21:40)
[2017-08-02] MEDS: MONTELUKAST 10 MG TABLET PO SCH (21:40)
[2017-08-03] MEDS: ALBUTEROL/IPRATROPIUM 3 ML NEB RESP TX SCH ×2 (00:29→07:17)
[2017-08-03] MEDS: ENOXAPARIN 100 MG/ML SYRINGE SUBCUT SCH (03:01)
[2017-08-03] MEDS: chlordiazePOXIDE 25 MG CAPSULE PO PRN (04:25)
[2017-08-03 06:26] LABS: INR 1.9; PT Patient Result 19.7 SECS
[2017-08-03] MEDS: THIAMINE 100 MG TABLET PO SCH (08:51)
[2017-08-03] MEDS: MULTIVITAMIN (BEROCCA) TABLET PO SCH (08:51)
[2017-08-03] MEDS: predniSONE 20 MG TABLET PO SCH (08:51)
[2017-08-03] MEDS: DOCUSATE SODIUM 100 MG CAPSULE PO SCH (08:51)
[2017-08-03] MEDS: PANTOPRAZOLE 40 MG TABLET PO SCH (08:51)
[2017-08-03] MEDS: CARVEDILOL 12.5 MG TABLET PO SCH (08:52)
[2017-08-03] MEDS: FOLIC ACID 1 MG TABLET PO SCH (08:52)
[2017-08-03] MEDS: amLODIPine 10 MG TABLET PO SCH (08:52)
[2017-08-03] MEDS: LOSARTAN 50 MG TABLET PO SCH (08:52)
[2017-08-03] MEDS: CALCIUM (CARBONATE)/VITAMIN D 500 MG-200 UNIT TABLET PO SCH (08:52)
[2017-08-03] MEDS: NICOTINE 21 MG/24 HR PATCH TRANSDERM SCH (08:52)
[2017-08-03 11:15] VITALS: BP 111/78
[2017-08-03] MEDS ORDERED: WARFARIN 7.5 MG TABLET PO SCH (18:00)
== END 2017-08-03 14:00 | DRG 176 ==
LOC: EDUNIT# → N.ED 09:36 → SUATTDRO 15:21 → N.EDINP 15:21 → N.5E 17:37
PROVIDERS: ADMIT Internal Medicine Infectious Disease; ATTEND Internal Medicine

== ENCOUNTER 2019-10-03 23:01 | Inpatient (IN) ==
[2019-10-03] MEDS ORDERED: ASPIRIN 325 MG TABLET PO STA (23:47)
[2019-10-03] MEDS ORDERED: NITROGLYCERIN 2% OINT 1 INCH/GM PACK TOP STA (23:47)
[2019-10-03] MEDS ORDERED: FUROSEMIDE 40 MG/4 ML VIAL IV STA (23:47)
[2019-10-03] MEDS ORDERED: ALBUTEROL/IPRATROPIUM 3 ML NEB RESP TX STA (23:47)
[2019-10-03] MEDS ORDERED: MORPHINE 4 MG/1 ML VIAL IV STA (23:47)
[2019-10-03] MEDS ORDERED: methylPREDNISolone SOD SUC 125 MG/2 ML VIAL IV STA (23:47)
[2019-10-03] MEDS ORDERED: ONDANSETRON 4 MG/2 ML VIAL IV STA (23:47)
[2019-10-04 00:05] LABS: Basophils % 0.5 % (0.0-0.8); Eosinophils % 0.3 % (0.00-10.9); Hematocrit 36.1 VOL% (42.0-52.0); Hemoglobin 11.7 GM/DL (14.0-18.0); Immature Granulocytes % 0.5 %; Immature Granulocytes Absolute 0.04 #; Lymphocytes # 0.8 10*3/uL (1.4-4.0); Lymphocytes % 11.3 % (21.2-54.2); Mean Corpuscular HGB Conc 32.4 GM/DL (32-36); Mean Corpuscular Volume 91.9 FL (87-102); Mean Platelet Volume 9.8 FL (9.6-12.0); Monocytes % 6.3 % (1.7-12.7); Neutrophils % 81.1 % (38.7-73.9); Platelet Count 195 T/CUMM (130-400); Red Blood Count 3.93 MC/CUMM (3.8-5.5); Red Cell Distribution Width 17.8 % (9.3-17.3); White Blood Count 7.3 T/CUMM (4-12)
[2019-10-04] MEDS ORDERED: hydrALAZINE 20 MG/1 ML VIAL IV STA (00:18)
[2019-10-04 00:20] LABS: Alanine Aminotransferase 21 U/L (16-61); Albumin 2.9 G/DL (3.4-5.0); Alkaline Phosphatase 93 U/L (45-117); Amylase 104 U/L (25-115); Aspartate Amino Transferase 45 U/L (0-37); Blood Urea Nitrogen 5 MG/DL (7-18); Calcium 8.5 MG/DL (8.5-10.1); Estimated Glom Filtration Rate 150 ML/MIN; Glucose 81 MG/DL (74-106); Osmolality,Calculated 265.1 MOS/KG (273-304); PT Patient Result 10.6 SECS (9.8-11.9); Total Protein 7.3 G/DL (6.4-8.3); Troponin I 0.023 NG/ML (0.00-0.045)
[2019-10-04] MEDS ORDERED: MAGNESIUM SULF RIDER 2 GM in PREMIX 1 EACH IV STA (00:34)
[2019-10-04 00:37] LABS: Apearance,Urine CLEAR (Clear); Bacteria,Urine Occasional /HPF (Few); Bilirubin,Urine Negative (Negative); Blood, Urine Negative (Negative); Glucose,Urine (UA) Negative (Negative); Ketones,Urine 5 mg/dL (Negative); Mucus,Urine Occasional /LPF (Occasional); Nitrite,Urine Negative (Negative); Protein,Urine 100 MG/DL; RBC,Urine 2 /HPF (0-4); Squamous Epithelial Cell,Urine Occasional /HPF (0-10); Urine Color Straw (Yellow); Urine Specific Gravity 1.008 (1.001-1.035); Urine Urobilinogen < 2.0 EU/DL (0.2-1.0); WBC,Urine 1 /HPF (0-6)
[2019-10-04] MEDS ORDERED: THIAMINE INJ 100 MG, FOLIC ACID INJ 1 MG, MAGNESIUM SULF INJ 2 GM, MULTIVITAMIN INJ 10 ... IV ONE (00:49)
[2019-10-04] MEDS ORDERED: ENOXAPARIN 100 MG/ML SYRINGE SUBCUT STA (00:58)
[2019-10-04 01:30] LABS: Barbiturates Screen,Urine Negative (Negative); Benzodiazepines Screen,Urine Negative (Negative); Cannabinoid Screen,Urine Negative (Negative); Opiate Screen,Urine Negative (Negative); Phencyclidine Screen,Urine Negative (Negative)
[2019-10-04] MEDS ORDERED: MAGNESIUM SULF RIDER 4 GM in PREMIX 1 EACH IV PRN (02:32)
[2019-10-04] MEDS ORDERED: ONDANSETRON 4 MG/2 ML VIAL IV PRN (02:32)
[2019-10-04] MEDS ORDERED: LORazepam 2 MG/1 ML VIAL IV PRN (02:32)
[2019-10-04] MEDS ORDERED: ALBUTEROL/IPRATROPIUM 3 ML NEB RESP TX PRN (02:32)
[2019-10-04] MEDS ORDERED: ACETAMINOPHEN 325 MG TABLET PO PRN (02:32)
[2019-10-04] MEDS: hydrALAZINE 20 MG/1 ML VIAL IV PRN ×3 (04:06→21:29)
[2019-10-04] MEDS: NICOTINE 21 MG/24 HR PATCH TRANSDERM SCH (08:07)
[2019-10-04] MEDS: MULTIVITAMIN (CENTRUM) TABLET PO SCH (08:07)
[2019-10-04] MEDS: FOLIC ACID 1 MG TABLET PO SCH (08:07)
[2019-10-04] MEDS: LORazepam 2 MG/1 ML VIAL IV PRN ×2 (08:07→15:38)
[2019-10-04] MEDS: THIAMINE 100 MG TABLET PO SCH (08:07)
[2019-10-04 08:57] LABS: Hematocrit 36.6 VOL% (42.0-52.0); Immature Granulocytes % 0.2 %; Immature Granulocytes Absolute 0.01 #; Lymphocytes # 0.2 10*3/uL (1.4-4.0); Lymphocytes % 4.5 % (21.2-54.2); Mean Corpuscular HGB Conc 32.8 GM/DL (32-36); Mean Corpuscular Volume 90.1 FL (87-102); Mean Platelet Volume 10.3 FL (9.6-12.0); Monocytes % 0.9 % (1.7-12.7); Neutrophils % 94.4 % (38.7-73.9); Platelet Count 191 T/CUMM (130-400); Red Blood Count 4.06 MC/CUMM (3.8-5.5); Red Cell Distribution Width 17.8 % (9.3-17.3); White Blood Count 4.4 T/CUMM (4-12)
[2019-10-04 09:20] LABS: Hypochromasia 1+; Lymphocytes 6 % (20-55); Platelet Estimate Adequate; Segmented Neutrophils 92 % (50-85); Total Cells Counted 100
[2019-10-04 09:31] LABS: Calcium 8.7 MG/DL (8.5-10.1); Osmolality,Calculated 266.2 MOS/KG (273-304)
[2019-10-04] MEDS: chlordiazePOXIDE 25 MG CAPSULE PO PRN ×2 (13:20→21:29)
[2019-10-04] MEDS: ENOXAPARIN 100 MG/ML SYRINGE SUBCUT SCH (14:58)
[2019-10-04] MEDS: GABAPENTIN 300 MG CAPSULE PO SCH (21:29)
[2019-10-05] MEDS: ENOXAPARIN 100 MG/ML SYRINGE SUBCUT SCH ×2 (02:53→14:10)
[2019-10-05 06:26] LABS: Hematocrit 33.5 VOL% (42.0-52.0); Hemoglobin 10.8 GM/DL (14.0-18.0); Immature Granulocytes % 0.2 %; Immature Granulocytes Absolute 0.01 #; Lymphocytes # 0.8 10*3/uL (1.4-4.0); Lymphocytes % 14.7 % (21.2-54.2); Mean Corpuscular HGB Conc 32.2 GM/DL (32-36); Monocytes % 13.3 % (1.7-12.7); Neutrophils % 71.8 % (38.7-73.9); Platelet Count 160 T/CUMM (130-400); Red Blood Count 3.64 MC/CUMM (3.8-5.5); Red Cell Distribution Width 17.9 % (9.3-17.3); White Blood Count 5.2 T/CUMM (4-12)
[2019-10-05 06:37] LABS: Calcium 8.4 MG/DL (8.5-10.1); Osmolality,Calculated 273.8 MOS/KG (273-304)
[2019-10-05 06:46] LABS: PT Patient Result 11.1 SECS (9.8-11.9)
[2019-10-05] MEDS: NICOTINE 21 MG/24 HR PATCH TRANSDERM SCH (09:32)
[2019-10-05] MEDS: LOSARTAN 50 MG TABLET PO SCH (09:32)
[2019-10-05] MEDS: THIAMINE 100 MG TABLET PO SCH (09:33)
[2019-10-05] MEDS: LABETALOL 200 MG TABLET PO SCH ×2 (09:33→20:50)
[2019-10-05] MEDS: amLODIPine 10 MG TABLET PO SCH (09:33)
[2019-10-05] MEDS: MULTIVITAMIN (CENTRUM) TABLET PO SCH (09:33)
[2019-10-05] MEDS: FUROSEMIDE 20 MG TABLET PO SCH (09:33)
[2019-10-05] MEDS: GABAPENTIN 300 MG CAPSULE PO SCH ×3 (09:33→20:50)
[2019-10-05] MEDS: FOLIC ACID 1 MG TABLET PO SCH (09:34)
[2019-10-05] MEDS: chlordiazePOXIDE 25 MG CAPSULE PO SCH ×2 (11:01→20:50)
[2019-10-05] MEDS: CHOLECALCIFEROL 1,000 UNIT TABLET PO SCH (11:01)
[2019-10-05] MEDS: CITALOPRAM 20 MG TABLET PO SCH (20:50)
[2019-10-05] MEDS: EZETIMIBE 10 MG TABLET PO SCH (20:50)
[2019-10-05] MEDS: ATORVASTATIN 40 MG TABLET PO SCH (20:50)
[2019-10-05] MEDS: MONTELUKAST 10 MG TABLET PO SCH (20:50)
[2019-10-06] MEDS: ENOXAPARIN 100 MG/ML SYRINGE SUBCUT SCH ×2 (02:45→14:40)
[2019-10-06] MEDS: chlordiazePOXIDE 25 MG CAPSULE PO SCH ×2 (09:10→21:15)
[2019-10-06] MEDS: LOSARTAN 50 MG TABLET PO SCH (09:10)
[2019-10-06] MEDS: GABAPENTIN 300 MG CAPSULE PO SCH ×3 (09:11→21:14)
[2019-10-06] MEDS: LABETALOL 200 MG TABLET PO SCH ×2 (09:11→22:05)
[2019-10-06] MEDS: MULTIVITAMIN (CENTRUM) TABLET PO SCH (09:11)
[2019-10-06] MEDS: amLODIPine 10 MG TABLET PO SCH (09:11)
[2019-10-06] MEDS: FUROSEMIDE 20 MG TABLET PO SCH (09:11)
[2019-10-06] MEDS: THIAMINE 100 MG TABLET PO SCH (09:11)
[2019-10-06] MEDS: CHOLECALCIFEROL 1,000 UNIT TABLET PO SCH (09:12)
[2019-10-06] MEDS: NICOTINE 21 MG/24 HR PATCH TRANSDERM SCH (09:12)
[2019-10-06] MEDS: FOLIC ACID 1 MG TABLET PO SCH (09:12)
[2019-10-06] MEDS ORDERED: KETOROLAC 10 MG TABLET PO PRN (10:49)
[2019-10-06] MEDS: POLYETHYLENE GLYCOL POWDER 17 GM PACK PO SCH (12:14)
[2019-10-06] MEDS ORDERED: LACTULOSE 20 GM/30 ML UDCUP PO PRN (14:04)
[2019-10-06] MEDS: WARFARIN 5 MG TABLET PO SCH (17:48)
[2019-10-06] MEDS: EZETIMIBE 10 MG TABLET PO SCH (21:15)
[2019-10-06] MEDS: CITALOPRAM 20 MG TABLET PO SCH (21:15)
[2019-10-06] MEDS: MONTELUKAST 10 MG TABLET PO SCH (21:15)
[2019-10-06] MEDS: ATORVASTATIN 40 MG TABLET PO SCH (21:15)
[2019-10-07] MEDS: ENOXAPARIN 100 MG/ML SYRINGE SUBCUT SCH ×2 (01:34→14:26)
[2019-10-07 03:41] LABS: Basophils % 0.6 % (0.0-0.8); Eosinophils # 0.1 10*3/uL (0.0-0.87); Eosinophils % 2.3 % (0.00-10.9); Hematocrit 32.7 VOL% (42.0-52.0); Hemoglobin 10.2 GM/DL (14.0-18.0); Immature Granulocytes % 0.4 %; Immature Granulocytes Absolute 0.02 #; Lymphocytes # 1.3 10*3/uL (1.4-4.0); Lymphocytes % 24.2 % (21.2-54.2); Mean Corpuscular HGB Conc 31.2 GM/DL (32-36); Mean Corpuscular Volume 96.2 FL (87-102); Mean Platelet Volume 12.2 FL (9.6-12.0); Monocytes % 11.1 % (1.7-12.7); Neutrophils % 61.4 % (38.7-73.9); Platelet Count 103 T/CUMM (130-400); Red Cell Distribution Width 18.7 % (9.3-17.3); White Blood Count 5.3 T/CUMM (4-12)
[2019-10-07 03:57] LABS: Calcium 7.6 MG/DL (8.5-10.1); Osmolality,Calculated 270.4 MOS/KG (273-304)
[2019-10-07] MEDS: THIAMINE 100 MG TABLET PO SCH (08:50)
[2019-10-07] MEDS: LOSARTAN 50 MG TABLET PO SCH (08:50)
[2019-10-07] MEDS: MULTIVITAMIN (CENTRUM) TABLET PO SCH (08:50)
[2019-10-07] MEDS: CHOLECALCIFEROL 1,000 UNIT TABLET PO SCH (08:53)
[2019-10-07] MEDS: LABETALOL 200 MG TABLET PO SCH ×2 (08:53→20:38)
[2019-10-07] MEDS: amLODIPine 10 MG TABLET PO SCH (08:53)
[2019-10-07] MEDS: FUROSEMIDE 20 MG TABLET PO SCH (08:53)
[2019-10-07] MEDS: POTASSIUM CHLORIDE 20 MEQ TABLET PO PRN ×3 (08:53→20:37)
[2019-10-07] MEDS: FOLIC ACID 1 MG TABLET PO SCH (08:54)
[2019-10-07] MEDS: NICOTINE 21 MG/24 HR PATCH TRANSDERM SCH (08:54)
[2019-10-07] MEDS: GABAPENTIN 300 MG CAPSULE PO SCH ×3 (08:54→20:37)
[2019-10-07] MEDS: POLYETHYLENE GLYCOL POWDER 17 GM PACK PO SCH (08:54)
[2019-10-07] MEDS: chlordiazePOXIDE 25 MG CAPSULE PO SCH ×2 (08:54→20:44)
[2019-10-07] MEDS: MAGNESIUM SULF RIDER 2 GM in PREMIX 1 EACH IV PRN (08:56)
[2019-10-07] MEDS ORDERED: SODIUM CHLORIDE 0.9% 250 ML IV ONE (10:21)
[2019-10-07 10:43] LABS: Basophils % 0.4 % (0.0-0.8); Eosinophils # 0.2 10*3/uL (0.0-0.87); Eosinophils % 3.1 % (0.00-10.9); Hematocrit 32.5 VOL% (42.0-52.0); Hemoglobin 10.2 GM/DL (14.0-18.0); Immature Granulocytes % 0.4 %; Immature Granulocytes Absolute 0.02 #; Lymphocytes # 1.2 10*3/uL (1.4-4.0); Mean Corpuscular HGB Conc 31.4 GM/DL (32-36); Mean Corpuscular Volume 96.2 FL (87-102); Mean Platelet Volume 10.5 FL (9.6-12.0); Neutrophils % 63.1 % (38.7-73.9); Platelet Count 133 T/CUMM (130-400); Red Blood Count 3.38 MC/CUMM (3.8-5.5); Red Cell Distribution Width 18.6 % (9.3-17.3); White Blood Count 5.2 T/CUMM (4-12)
[2019-10-07 10:44] LABS: ABG Base Excess 0.9 MMOL/L (-2.5-2.5); ABG HCO3 25.2 MMOL/L (20-26); ABG Oxygen Saturation 97.1 % (95-100); ABG PCO2 37.6 MM HG (35-48); ABG PH 7.431 (7.35-7.45); ABG PO2 84.9 MM HG (80-95); ABG TCO2 22.8 MMOL/L (23-27)
[2019-10-07 11:04] LABS: Alanine Aminotransferase 35 U/L (16-61); Albumin 2.3 G/DL (3.4-5.0); Alkaline Phosphatase 63 U/L (45-117); Aspartate Amino Transferase 44 U/L (0-37); Bilirubin,Total < 0.39 MG/DL (0.2-1.0); Blood Urea Nitrogen 21 MG/DL (7-18); Estimated Glom Filtration Rate 99 ML/MIN; Glucose 91 MG/DL (74-106); Osmolality,Calculated 275.8 MOS/KG (273-304); Total Protein 5.9 G/DL (6.4-8.3)
[2019-10-07 13:36] LABS: Macrocytosis Slight; Platelet Estimate Adequate
[2019-10-07] MEDS: WARFARIN 5 MG TABLET PO SCH (17:21)
[2019-10-07] MEDS: EZETIMIBE 10 MG TABLET PO SCH (20:37)
[2019-10-07] MEDS: ATORVASTATIN 40 MG TABLET PO SCH (20:37)
[2019-10-07] MEDS: CITALOPRAM 20 MG TABLET PO SCH (20:37)
[2019-10-07] MEDS: MONTELUKAST 10 MG TABLET PO SCH (20:37)
[2019-10-08] MEDS: ENOXAPARIN 100 MG/ML SYRINGE SUBCUT SCH ×2 (02:40→14:10)
[2019-10-08 06:01] LABS: Calcium 8.2 MG/DL (8.5-10.1); Osmolality,Calculated 283.3 MOS/KG (273-304)
[2019-10-08] MEDS: MAGNESIUM SULF RIDER 2 GM in PREMIX 1 EACH IV PRN (07:07)
[2019-10-08] MEDS: NICOTINE 21 MG/24 HR PATCH TRANSDERM SCH (09:53)
[2019-10-08] MEDS: LOSARTAN 50 MG TABLET PO SCH (09:54)
[2019-10-08] MEDS: CHOLECALCIFEROL 1,000 UNIT TABLET PO SCH (09:54)
[2019-10-08] MEDS: amLODIPine 10 MG TABLET PO SCH (09:54)
[2019-10-08] MEDS: GABAPENTIN 300 MG CAPSULE PO SCH ×3 (09:54→22:01)
[2019-10-08] MEDS: THIAMINE 100 MG TABLET PO SCH (09:54)
[2019-10-08] MEDS: LABETALOL 200 MG TABLET PO SCH ×2 (09:54→22:02)
[2019-10-08] MEDS: FUROSEMIDE 20 MG TABLET PO SCH (09:54)
[2019-10-08] MEDS: MULTIVITAMIN (CENTRUM) TABLET PO SCH (09:54)
[2019-10-08] MEDS: FOLIC ACID 1 MG TABLET PO SCH (09:54)
[2019-10-08] MEDS: chlordiazePOXIDE 25 MG CAPSULE PO SCH ×2 (09:54→22:34)
[2019-10-08] MEDS: POLYETHYLENE GLYCOL POWDER 17 GM PACK PO SCH (09:55)
[2019-10-08] MEDS: WARFARIN 5 MG TABLET PO SCH (17:05)
[2019-10-08] MEDS: EZETIMIBE 10 MG TABLET PO SCH (22:01)
[2019-10-08] MEDS: MONTELUKAST 10 MG TABLET PO SCH (22:01)
[2019-10-08] MEDS: CITALOPRAM 20 MG TABLET PO SCH (22:01)
[2019-10-08] MEDS: ATORVASTATIN 40 MG TABLET PO SCH (22:01)
[2019-10-09] MEDS: ENOXAPARIN 100 MG/ML SYRINGE SUBCUT SCH ×2 (02:59→14:52)
[2019-10-09 03:03] LABS: Basophils % 0.6 % (0.0-0.8); Eosinophils # 0.2 10*3/uL (0.0-0.87); Eosinophils % 3.6 % (0.00-10.9); Hematocrit 31.5 VOL% (42.0-52.0); Immature Granulocytes % 0.2 %; Immature Granulocytes Absolute 0.01 #; Lymphocytes # 1.5 10*3/uL (1.4-4.0); Lymphocytes % 28.8 % (21.2-54.2); Mean Corpuscular HGB Conc 31.7 GM/DL (32-36); Mean Corpuscular Volume 95.5 FL (87-102); Mean Platelet Volume 10.3 FL (9.6-12.0); Monocytes % 16.3 % (1.7-12.7); Neutrophils % 50.5 % (38.7-73.9); Platelet Count 141 T/CUMM (130-400); Red Cell Distribution Width 18.8 % (9.3-17.3)
[2019-10-09 03:18] LABS: Calcium 8.3 MG/DL (8.5-10.1); Osmolality,Calculated 278.5 MOS/KG (273-304)
[2019-10-09 04:09] LABS: Band Neutrophils 3 % (0-10); Eosinophils 1 % (0-10); Lymphocytes 36 % (20-55); Segmented Neutrophils 48 % (50-85); Total Cells Counted 100
[2019-10-09 04:10] LABS: Acanthocytes Few; Anisocytosis 1+; Platelet Estimate Normal
[2019-10-09] MEDS: MULTIVITAMIN (CENTRUM) TABLET PO SCH (08:50)
[2019-10-09] MEDS: GABAPENTIN 300 MG CAPSULE PO SCH ×3 (08:50→21:31)
[2019-10-09] MEDS: POLYETHYLENE GLYCOL POWDER 17 GM PACK PO SCH (08:50)
[2019-10-09] MEDS: NICOTINE 21 MG/24 HR PATCH TRANSDERM SCH (08:50)
[2019-10-09] MEDS: amLODIPine 10 MG TABLET PO SCH (08:50)
[2019-10-09] MEDS: THIAMINE 100 MG TABLET PO SCH (08:51)
[2019-10-09] MEDS: CHOLECALCIFEROL 1,000 UNIT TABLET PO SCH (08:51)
[2019-10-09] MEDS: LABETALOL 200 MG TABLET PO SCH ×2 (08:51→21:31)
[2019-10-09] MEDS: FOLIC ACID 1 MG TABLET PO SCH (08:51)
[2019-10-09] MEDS: LOSARTAN 50 MG TABLET PO SCH (08:51)
[2019-10-09] MEDS: chlordiazePOXIDE 25 MG CAPSULE PO SCH ×2 (08:51→21:31)
[2019-10-09] MEDS: FUROSEMIDE 20 MG TABLET PO SCH (08:51)
[2019-10-09] MEDS ORDERED: TUBERCULIN SKIN TEST 0.1 ML SYRINGE INTRADERM ONE (14:42)
[2019-10-09 17:07] LABS: PT Patient Result 11.2 SECS (9.8-11.9)
[2019-10-09] MEDS: WARFARIN 5 MG TABLET PO SCH (17:58)
[2019-10-09] MEDS: ATORVASTATIN 40 MG TABLET PO SCH (21:31)
[2019-10-09] MEDS: MONTELUKAST 10 MG TABLET PO SCH (21:32)
[2019-10-09] MEDS: EZETIMIBE 10 MG TABLET PO SCH (21:32)
[2019-10-09] MEDS: CITALOPRAM 20 MG TABLET PO SCH (21:32)
[2019-10-10] MEDS: ENOXAPARIN 100 MG/ML SYRINGE SUBCUT SCH (02:57)
[2019-10-10 08:11] LABS: INR 1.1; PT Patient Result 11.3 SECS (9.8-11.9)
[2019-10-10] MEDS: NICOTINE 21 MG/24 HR PATCH TRANSDERM SCH (09:06)
[2019-10-10] MEDS: chlordiazePOXIDE 25 MG CAPSULE PO SCH (09:07)
[2019-10-10] MEDS: FOLIC ACID 1 MG TABLET PO SCH (09:07)
[2019-10-10] MEDS: CHOLECALCIFEROL 1,000 UNIT TABLET PO SCH (09:07)
[2019-10-10] MEDS: THIAMINE 100 MG TABLET PO SCH (09:07)
[2019-10-10] MEDS: MULTIVITAMIN (CENTRUM) TABLET PO SCH (09:07)
[2019-10-10] MEDS: FUROSEMIDE 20 MG TABLET PO SCH (09:07)
[2019-10-10] MEDS: LABETALOL 200 MG TABLET PO SCH (09:08)
[2019-10-10] MEDS: amLODIPine 10 MG TABLET PO SCH (09:08)
[2019-10-10] MEDS: GABAPENTIN 300 MG CAPSULE PO SCH ×2 (09:08→15:17)
[2019-10-10] MEDS: POLYETHYLENE GLYCOL POWDER 17 GM PACK PO SCH (09:08)
[2019-10-10] MEDS: LOSARTAN 50 MG TABLET PO SCH (09:08)
[2019-10-10 15:17] VITALS: BP 108/83
== END 2019-10-10 15:18 | disposition swing bed (61) | DRG 74 ==
LOC: EDBD → EDUNIT# → N.ED 23:01 → N.EDINP 23:01 → INTOOBSV 10-04 02:06 → OBSVTOIN 10-04 02:06 → N.TELES 10-04 02:30 → SUATTDRO 10-05 13:05
PROVIDERS: ADMIT Internal Medicine; ATTEND Internal Medicine Geriatric Medicine